=== PATIENT | female | born 1965 ===

== ENCOUNTER 2024-12-16 10:33 | Outpatient (AMB) | payer MEDICAID, SELFPAY ==
[2024-12-16 10:34] VITALS: BP 124/78; PULSE 78; O2SAT 99; BMI 39.9
--- NOTE | 2024-12-16 10:34 | A.OFFVIS_ITS ---
Vital Signs 12/16/24 10:34 Height 5 ft 4 in Weight 232 lb 9.403 oz BMI 39.9 BP 124/78 Blood Pressure Location Rt brachial Position Sitting Pulse 78 Pulse Source Doppler Pulse Oximetry (%) 99 Oxygen Delivery Method Room Air Intake Visit Reasons: sleep apnea Allergies ciprofloxacin [From Cipro] Allergy (Unknown, Verified 12/16/24 10:41) SWELLING levofloxacin [From Levaquin] Allergy (Unknown, Verified 12/16/24 10:41) SWELLING metronidazole [From Flagyl] Allergy (Unknown, Verified 12/16/24 10:41) HIVES From Flagyl Allergy (Unknown, Uncoded 06/10/20 17:08) HIVES HPI HPI sleep apnea: Details: 59-year-old lady, nonsmoker, with recent diagnosis of moderate obstructive sleep apnea on sleep study from [facility] referred for further follow- up. Patient is also complaining of lower extremity edema and dyspnea on exertion, together with right-sided chest/back pain. She denies family history of lung disease. She denies prior personal history of lung disease. Patient does not have exposure to industrial dusts. [facility] Social History (Updated 12/16/24 @ 10:42 by Uma Min [facility] Patient Tobacco Use Status: Never used Tobacco Review of Systems Const Reports daytime sleepiness, Denies excessive sweating, Reports fatigue, Denies fever(s), Denies lethargy, Reports malaise, Denies night sweats, Reports snoring and Denies weight loss Eyes Denies blurry vision and Denies itchy eyes ENT Denies nasal congestion, Denies post nasal drip, Denies sinus pain, Denies sinus pressure and Denies other ( Thrush) Card Denies chest pain, Reports pedal edema, Denies dyspnea, Reports dyspnea on exertion, Denies orthopnea and Denies paroxysmal nocturnal dyspnea Resp Denies cough, Denies hemoptysis, Denies excessive phlegm production, Denies dyspnea, Reports dyspnea on exertion, Reports snoring and Denies wheezing GI Denies abdominal pain and Denies heartburn Musc Denies myalgias, Denies arthralgias and Denies joint swelling Skin/Breast Denies rash Neuro Denies memory loss and Denies seizure-like activity Psych Denies abnormal sleep pattern, Denies anxiety and Denies memory loss Endo Denies excessive sweating, Reports fatigue and Denies heat intolerance Oziel/Lymph Denies easy bruising Aller/Immun Denies itchy eyes, Denies seasonal rhinorrhea and Denies wheezing Physical Exam Vital Signs: Last Vital Signs Pulse 78 12/16/24 10:34 BP 124/78 12/16/24 10:34 Pulse Ox 99 12/16/24 10:34 Oxygen Delivery Method Room Air 12/16/24 10:34 BMI result Body Mass Index 39.9 Const General: no acute distress and alert Nutritional Appearance: obese Orientation/consciousness: Other orientation findings ( oriented) HEENT Head: Yes atraumatic Eyes General: appearance normal, both eyes and all related structures Sclerae: sclerae normal EOM: EOMs intact bilaterally Neck Neck: Yes supple Lymphatic: no lymphadenopathy noted Resp Effort & Inspection: normal respiratory effort and no use of accessory muscles Auscultation: clear to auscultation bilaterally Cardio Rate: regular rate Rhythm: regular rhythm Heart sounds: no gallops, no murmurs and no rubs Skin General skin exam: other ( warm) Extrem General: No clubbing, No cyanosis and Yes edema (Trace bilateral) Assessment & Plan Assessment & Plan (1) LINA (obstructive sleep apnea): Code(s): G47.33 - Obstructive sleep apnea (adult) (pediatric) Category: Medical Plan: Results of sleep study reviewed, underlying moderate obstructive sleep apnea. Will start on APAP of 6-16 cm of water. (2) Dyspnea on exertion: Code(s): R06.09 - Other forms of dyspnea Category: Medical Plan: Unclear etiology, may be multifactorial, appears to have a component of extremity edema, will obtain 2D echocardiogram for further evaluation. (3) Right-sided chest wall pain: Code(s): R07.89 - Other chest pain Category: Medical Plan: Will obtain chest x-ray for further evaluation. Orders: Orders XR chest 2V Today R06.09 - Other forms of dyspnea, R07.89 - Other chest pain CA echo transthorac w con Today R06.09 - Other forms of dyspnea Coding Level of Care Code New Pt Level 4 (36606) Diagnoses LINA (obstructive sleep apnea) G47.33 Dyspnea on exertion R06.09 Right-sided chest wall pain R07.89
--- OUTSIDE RECORDS SUMMARY | 2024-12-16 12:40 | XMS_ITS | Clinical Summary ---
Author Organization [facility] Address [address] [place] [address] Care Team Providers Care Manager Pediatric Name Role Phone Unavailable Primary Care Provider Unavailabl e Social History Tobacco Use Types Packs/Day Years Used Date Smoking Tobacco: Never Assessed Comments Unknown Sex and Gender Information Value Date Recorded Sex Assigned at Not on file Legal Sex Female 6:11 PM EDT Gender Identity Not on file Sexual Orientation Not on file Plan of Treatment Health Maintenance Due Date Last Done Comments Breast Cancer Screening 1965 DTaP,Tdap,and Td Vaccines (1 - Tdap) 11/26/1983 Cervical Cancer Screening: P ap Smear 1985 Pneumococcal Vaccine: 50+ Ye ars (1 of 1 - PCV) 2014 Zoster Vaccines (1 of 2) 2014 COVID-19 Vaccine (2023-2 5 season) 2024 Influenza Vaccine (#1) 2024 Colorectal Cancer Screening: Colonoscopy 07/20/2024 Depression Screening 07/20/2024 HIV Screening 07/20/2024 Hepatitis C Screening 07/20/2024 Social Influencers of Health Screening 07/20/2024 RSV Immunization Patients 60 + Years Old (1 - 1-dose 75+ series) 11/26/2039 HIB Vaccines Aged Out No longer eligi ble based on patient's age to complete this topic HPV Vaccines Aged Out No longer eligi ble based on patient's age to complete this topic Hepatitis A Vaccines Aged Out No long er eligible based on patient's age to complete this topic Hepatitis B Vaccines Aged Out No long er eligible based on patient's age to complete this topic IPV Vaccines Aged Out No longer eligi ble based on patient's age to complete this topic MMR Vaccines Aged Out No longer eligi ble based on patient's age to complete this topic Meningococcal ACWY Vaccine Aged Out N o longer eligible based on patient's age to complete this topic Meningococcal B Vacine Aged Out No lo nger eligible based on patient's age to complete this topic Pneumococcal Vaccine: Pediat rics (0 to 5 Years) and At-Risk Patients (6 to 64 Years) Aged Out No longer eligible b ased on patient's age to complete this topic RSV Immunization Patients Un anatoliy 20 months Aged Out No longer eligible b ased on patient's age to complete this topic Varicella Vaccines Aged Out No longer eligible based on patient's age to complete this topic
== END 2024-12-16 11:00 | disposition home or self-care (01) ==
LOC: HO.HPS 10:33
PROVIDERS: PCP Internal Medicine; Visit Provider Internal Medicine Pulmonary Disease
DX: G47.33 Obstructive sleep apnea (adult) (pediatric) (principal); R06.09 Other forms of dyspnea; R07.89 Other chest pain
CPT/HCPCS: 99204

== ENCOUNTER 2024-12-16 10:33 | Outpatient (REF) | payer MEDICAID, SELFPAY ==
--- NOTE | ~2024-12-16 | XR_ITS ---
EXAMINATION: XR CHEST 2 VIEWS HISTORY: R07.89 - Other chest pain COMPARISON: There are no prior studies for comparison. FINDINGS: PA and lateral views of the chest are submitted. The lungs are expanded and clear. There is no pleural effusion, pneumothorax, or pulmonary vascular congestion. The heart is normal in size. There is a small hiatal hernia. There is degenerative disc disease of the spine. XR/XR chest 2V IMPRESSION: Small hiatal hernia. The lungs are clear. Electronically signed by: Humberto Medina MD 12/17/2024 07:22 AM EDT
== END 2024-12-16 10:34 | disposition home or self-care (01) ==
LOC: HO.XRAY 10:33
PROVIDERS: PCP Internal Medicine; Visit Provider Internal Medicine Pulmonary Disease
DX: R06.09 Other forms of dyspnea (principal); K44.9 Diaphragmatic hernia without obstruction or gangrene; R07.89 Other chest pain
CPT/HCPCS: 71046; 99202

== ENCOUNTER → 2024-12-16 11:09 | Outpatient (BNV) | payer MEDICAID, SELFPAY | PROVIDERS: PCP Internal Medicine; Visit Provider Radiology Diagnostic Radiology | DX: R07.89 Other chest pain (principal) | CPT/HCPCS: 71046 ==

== ENCOUNTER → 2025-01-13 08:58 | Outpatient (REF) | payer OTHER, SELFPAY ==
--- NOTE | 2025-01-13 09:01 | CA_ITS ---
Transthoracic Echocardiogram Patient (Last, First, Middle): Gisella Wise, Gender: Female Date of : 1965 Age: 59 Procedure Date: 01/13/2025 Procedure Type: Transthoracic Echocardiogram Location: OP Height: 162. cm Weight: 104.33 kg BSA: 2.07 m2 Heart Rate: bpm BP: 132 / 90 mmHg Stores Laborer: CRISTIANO Referring MD: Kyle Robins MD Symptoms: R06.09 - Other forms of dyspnea Study Quality: Adequate ECG Rhythm: Sinus Conclusions: - The left ventricular systolic function is normal. The calculated ejection fraction is 67% by biplane method - No obvious valvular pathology seen on this study. - The inferior vena cava is mildly dilated and collapses less than 50% with inspiration. Findings Left Ventricle Normal left ventricular cavity size. There is normal left ventricular wall thickness. The left ventricular systolic function is normal. The calculated ejection fraction is 67% by biplane method. There is no evidence of regional wall motion abnormalities. Diastolic function is normal for age. Right Ventricle Normal right ventricular cavity size and systolic function. Atria Both atria are normal in size. Aortic Valve There is a normal trileaflet aortic valve. There is no aortic valve stenosis. There is no aortic valve regurgitation. Mitral Valve The mitral valve appears normal. There is trace mitral valve regurgitation. There is no mitral valve stenosis. Pulmonic Valve The pulmonic valve is likely normal. Tricuspid Valve There is trace tricuspid valve regurgitation. There is no evidence of pulmonary hypertension. Great Vessels The asc aorta and aortic arch are normal in size. Venous The inferior vena cava is mildly dilated and collapses less than 50% with inspiration. Pericardium/Pleural There is no evidence of pericardial effusion. Prior Study Comparison No significant change compared to prior study dated: 04/28/2008. Recommendations, Care & Conclusions No obvious valvular pathology seen on this study. Measurements 2D Linear Measurements IVSd: 1.01 0.6-0.9/0.6-1.0 cm LVIDd: 3.95 3.9-5.3/4.2-5.9 cm LVIDd Index: 1.91 2.4-3.2/2.2-3.1 cm/m2 LVIDs: 2.84 2.0-3.6 cm LVPWd: 0.83 0.7-1.1 cm LA Diam: 3.80 2.7-3.8/3.0-4.0 cm LAIDs Index: 1.84 1.5-2.3 cm/m2 LV Mass: 137.56 67-162/88-224 g LV Mass Index: 66.46 43-95/49-115 g/m2 LVOT Diam: 2.00 3.0+(-)1.3 cm 2D Systolic Function EF 4C: 62.50 >55% EF 2C: 66.20 >55% EF BiP: 66.70 >55% Mitral Valve MV Pk E: 0.95 MV PK A: 0.89 MV Decel Time: 184.00 E/A: 1.10 E'Lateral: 11.50 E'Medial: 7.72 E/E' Med: 12.30 E/E' Lat: 8.20 PHT: 54.00 MVA PHT: 4.07 Decel [place]: 5.13 Aortic Valve AoV Pk Abel: 1.40 AoV Mn Abel: 0.98 AoV VTI: 0.30 AoV Pk Grad: 8.00 Aov Mn Grad: 4.00 APOLONIA Cont.VTI: 2.19 LVOT LVOT Pk Abel: 0.93 LVOT Mn Abel: 0.73 LVOT VTI: 0.21 LVOT Pk Grad: 3.00 LVOT Mn Grad: 2.00 LVOT Diam: 2.00 LVOT Area: 3.14 Diastolic Function MV Pk E: 0.95 MV Pk A: 0.89 E/A: 1.10 E'Medial: 7.72 E/E' Med: 12.30 E' Laterial: 11.50 E/E' Lat: 8.20 Right Ventricle TAPSE (mm): 19.50 TVS' Abel: 11.40 Tricuspid Valve TR Pk Abel: 1.40 TR Pk Grad: 8.00 RA Press: 15.00 RVSP: 23.00 Great Vessels Aorta Sinus of Valsalva: 2.90 2.0-3.5 cm Ao Asc: 2.90 2.1-3.4 cm Ao Arch: 2.20 Pulmonary Valve PV Pk Abel: 1.07 Peak PV Grad: 5.00 Updated in Other Vendor System with Status of Final Elvis Zarate MD electronically signed on 01/13/2025 11:28:51 AM with status of Final
--- OUTSIDE RECORDS SUMMARY | 2025-01-13 09:25 | XMS_ITS | Clinical Summary ---
Author Organization [facility] Address [address] [place] [address] Care Team Providers Care Golf Instructor Name Role Phone Unavailable Primary Care Provider [...] 2014 COVID-19 Vaccine (2023-2 5 season) 2024 Colorectal Cancer Screening: Colonoscopy 07/20/2024 Depression Screening 07/20/2024 HIV Screening 07/20/2024 Hepatitis C Screening 07/20/2024 Social Influencers of Health Screening 07/20/2024 Influenza Vaccine (Season Ended) 2025 RSV Immunization Adult Patie nts (1 - 1-dose 75+ series) 11/26/2039 HIB [...] age to complete this topic Meningococcal B Vaccine Aged Out No l onger eligible based on patient's age to complete [...]
== END ==
LOC: HO.CARD 08:58
PROVIDERS: PCP Internal Medicine; Visit Provider Internal Medicine Pulmonary Disease
DX: R06.09 Other forms of dyspnea (principal)
CPT/HCPCS: 93306

== ENCOUNTER → 2025-01-13 09:01 | Outpatient (BNV) | payer OTHER, SELFPAY | PROVIDERS: PCP Internal Medicine; Visit Provider Internal Medicine | DX: R06.02 Shortness of breath (principal) | CPT/HCPCS: 93306 ==

== ENCOUNTER 2025-02-05 14:12 | Outpatient (AMB) | payer OTHER, SELFPAY ==
--- NOTE | 2025-02-05 14:18 | MHC.OFFVIS ---
Vital Signs 02/05/25 14:37 Height 5 ft 4 in Weight 238 lb BMI 40.8 BP 154/100 H Blood Pressure Location Lt brachial Position Sitting Pulse 92 Pulse Source Pulse Oximeter Pulse Oximetry (%) 96 Oxygen Delivery Method Room Air Intake Visit Reasons: sleep apnea Allergies ciprofloxacin [From Cipro] Allergy (Unknown, Verified 02/05/25 14:43) SWELLING levofloxacin [From Levaquin] Allergy (Unknown, Verified 02/05/25 14:43) SWELLING metronidazole [From Flagyl] Allergy (Unknown, Verified 02/05/25 14:43) HIVES From Flagyl Allergy (Unknown, Uncoded 06/10/20 17:08) HIVES HPI HPI sleep apnea: Details: 60-year-old lady, nonsmoker, followed for LINA currently not able to use CPAP secondary to not permanent housing., reactive airway disease, now controlled on albuterol MDI, and significant orthopnea/lower extremity edema. Patient did have her 2D echocardiogram that showed underlying diastolic dysfunction. She denies recent exacerbations. [facility] Social History (Updated 12/16/24 @ 10:42 by Uma Min [facility]) Patient Tobacco Use Status: Never used Tobacco Review of Systems Const Denies daytime sleepiness, Denies excessive sweating, Denies fatigue, Denies fever(s), Denies lethargy, Denies malaise, Denies night sweats, Denies snoring and Denies weight loss Eyes Denies blurry vision and Denies itchy eyes ENT Denies nasal congestion, Denies post nasal drip, Denies sinus pain, Denies sinus pressure and Denies other ( Thrush) Card Denies chest pain, Reports pedal edema, Denies dyspnea, Reports dyspnea on exertion, Reports orthopnea and Denies paroxysmal nocturnal dyspnea Resp Denies cough, Denies hemoptysis, Denies excessive phlegm production, Denies dyspnea, Reports dyspnea on exertion, Denies snoring and Denies wheezing GI Denies abdominal pain and Denies heartburn Musc Denies myalgias, Denies arthralgias and Denies joint swelling Skin/Breast Denies rash Neuro Denies memory loss and Denies seizure-like activity Psych Denies abnormal sleep pattern, Denies anxiety and Denies memory loss Endo Denies excessive sweating, Denies fatigue and Denies heat intolerance Oziel/Lymph Denies easy bruising Aller/Immun Denies itchy eyes, Denies seasonal rhinorrhea and Denies wheezing Physical Exam Vital Signs: Last Vital Signs Pulse 92 02/05/25 14:37 BP 154/100 H 02/05/25 14:37 Pulse Ox 96 02/05/25 14:37 Oxygen Delivery Method Room Air 02/05/25 14:37 BMI result Body Mass Index 40.8 Const General: no acute distress and alert Nutritional Appearance: obese Orientation/consciousness: Other orientation findings ( oriented) HEENT Head: Yes atraumatic Eyes General: appearance normal, both eyes and all related structures Sclerae: sclerae normal EOM: EOMs intact bilaterally Neck Neck: Yes supple Lymphatic: no lymphadenopathy noted Resp Effort & Inspection: normal respiratory effort and no use of accessory muscles Auscultation: clear to auscultation bilaterally Cardio Rate: regular rate Rhythm: regular rhythm Heart sounds: no gallops, no murmurs and no rubs Skin General skin exam: other ( warm) Extrem General: No clubbing, No cyanosis and Yes edema (2+ bilateral) Assessment & Plan Assessment & Plan (1) Dyspnea on exertion: Code(s): R06.09 - Other forms of dyspnea Category: Medical Plan: Now with significant orthopnea/lower extremity edema with 2D echocardiogram showing diastolic dysfunction. Will start on furosemide 40 mg daily. (2) LINA (obstructive sleep apnea): Code(s): G47.33 - Obstructive sleep apnea (adult) (pediatric) Category: Medical Plan: Patient has received her CPAP machine, however she is not able to use his secondary to lack of permanent housing. Medications: New furosemide 40 mg PO QAM 30 tabs 6RF Coding Level of Care Code Est Pt Level 4 (75273) Diagnoses Dyspnea on exertion R06.09 LINA (obstructive sleep apnea) G47.33
[2025-02-05 14:37] VITALS: BP 154/100; PULSE 92; O2SAT 96; BMI 40.8
--- OUTSIDE RECORDS SUMMARY | 2025-02-05 14:52 | XMS_ITS | Clinical Summary ---
Author Organization [facility] Address [address] [place] [address] Care Team Providers Care Hot Saw Helper Name Role Phone Unavailable Primary Care Provider [...]
== END 2025-02-05 15:12 | disposition home or self-care (01) ==
LOC: HO.HPS 14:12
PROVIDERS: PCP Internal Medicine; Visit Provider Internal Medicine Pulmonary Disease
DX: R06.09 Other forms of dyspnea (principal); G47.33 Obstructive sleep apnea (adult) (pediatric)
CPT/HCPCS: 99214

== ENCOUNTER → 2025-02-05 14:12 | Outpatient (BNVA) | payer OTHER, SELFPAY | PROVIDERS: PCP Internal Medicine; Visit Provider Internal Medicine Pulmonary Disease | DX: R06.09 Other forms of dyspnea (principal); G47.33 Obstructive sleep apnea (adult) (pediatric) | CPT/HCPCS: 99212 ==

== ENCOUNTER 2025-05-22 08:39 | Outpatient (AMB) | payer OTHER, SELFPAY ==
[2025-05-22 09:01] VITALS: BP 119/62; PULSE 79; O2SAT 99; BMI 41.0
--- NOTE | 2025-05-22 09:01 | A.OFFVIS_ITS ---
Vital Signs 05/22/25 09:01 Height 5 ft 4 in Weight 239 lb BMI 41.0 BP 119/62 Blood Pressure Location Lt brachial Position Sitting Pulse 79 Pulse Source Pulse Oximeter Pulse Oximetry (%) 99 Oxygen Delivery Method Room Air Intake Visit Reasons: sleep apnea Trigonometry Teacher Required: Yes Trigonometry Teacher Name: Uma Piotr Gomez Allergies ciprofloxacin (From Cipro) Allergy (Unknown, Verified 05/22/25 09:06) SWELLING levofloxacin (From Levaquin) Allergy (Unknown, Verified 05/22/25 09:06) SWELLING metronidazole (From Flagyl) Allergy (Unknown, Verified 05/22/25 09:06) HIVES From Flagyl Allergy (Unknown, Uncoded 06/10/20 17:08) HIVES HPI HPI sleep apnea: Details: 59-year-old lady, nonsmoker, followed for moderate LINA and reactive airway disease. Patient was tried on and not able to use CPAP. Her reactive airway disease component as well controlled on as needed albuterol MDI. She had recent admission to [facility] for pulmonary segmental emboli in the right lower lobe and she is currently on apixaban. She continues to complain of dyspnea on exertion and orthopnea despite being compliant with her current regimen of Lasix 40 mg daily. She is complaining old left posterior back/chest pain that is similar to pain that she had with her pulmonary emboli. [facility] Social History (Updated 12/16/24 @ 10:42 by RYAN Abdul) Patient Tobacco Use Status: Never used Tobacco Review of Systems Const Denies daytime sleepiness, Denies excessive sweating, Denies fatigue, Denies fever(s), Denies lethargy, Denies malaise, Denies night sweats, Denies snoring and Denies weight loss Eyes Denies blurry vision and Denies itchy eyes ENT Denies nasal congestion, Denies post nasal drip, Denies sinus pain, Denies sinus pressure and Denies other ( Thrush) Card Denies chest pain, Reports pedal edema, Denies dyspnea, Reports dyspnea on exertion, Reports orthopnea and Denies paroxysmal nocturnal dyspnea Resp Denies cough, Denies hemoptysis, Denies excessive phlegm production, Denies dyspnea, Reports dyspnea on exertion, Denies snoring and Denies wheezing GI Denies abdominal pain and Denies heartburn Musc Denies myalgias, Denies arthralgias and Denies joint swelling Skin/Breast Denies rash Neuro Denies memory loss and Denies seizure-like activity Psych Denies abnormal sleep pattern, Denies anxiety and Denies memory loss Endo Denies excessive sweating, Denies fatigue and Denies heat intolerance Oziel/Lymph Denies easy bruising Aller/Immun Denies itchy eyes, Denies seasonal rhinorrhea and Denies wheezing Physical Exam Vital Signs: Last Vital Signs Pulse 79 05/22/25 09:01 BP 119/62 05/22/25 09:01 Pulse Ox 99 05/22/25 09:01 Oxygen Delivery Method Room Air 05/22/25 09:01 BMI result Body Mass Index 41.0 Const General: no acute distress and alert Nutritional Appearance: obese Orientation/consciousness: Other orientation findings ( oriented) HEENT Head: Yes atraumatic Eyes General: appearance normal, both eyes and all related structures Sclerae: sclerae normal EOM: EOMs intact bilaterally Neck Neck: Yes supple Lymphatic: no lymphadenopathy noted Resp Effort & Inspection: normal respiratory effort and no use of accessory muscles Auscultation: clear to auscultation bilaterally Cardio Rate: regular rate Rhythm: regular rhythm Heart sounds: no gallops, no murmurs and no rubs Skin General skin exam: other ( warm) Extrem General: No clubbing, No cyanosis and Yes edema (Trace bilateral) Assessment & Plan Assessment & Plan (1) LINA (obstructive sleep apnea): Code(s): G47.33 - Obstructive sleep apnea (adult) (pediatric) Category: Medical Plan: Underlying moderate obstructive sleep apnea intolerant of CPAP. Discussed utilization of jaw advancement device. (2) Dyspnea on exertion: Code(s): R06.09 - Other forms of dyspnea Category: Medical Plan: Dyspnea and orthopnea appears to have cardiac component. Will refer to Cardiology. (3) Pulmonary emboli: Code(s): I26.99 - Other pulmonary embolism without acute cor pulmonale Category: Medical Plan: Segmental and subsegmental right lower lobe, continue on apixaban. Now with concern for suboptimal control and possible another embolism. Will repeat CT angio chest. (4) Reactive airway disease: Code(s): J45.909 - Unspecified asthma, uncomplicated Category: Medical Plan: Well controlled on albuterol MDI as needed. Continue current regimen. Coding Level of Care Code Est Pt Level 4 (12056) Complex EM visit Add On G2211 Diagnoses LINA (obstructive sleep apnea) G47.33 Dyspnea on exertion R06.09 Pulmonary emboli I26.99 Reactive airway disease J45.909
--- OUTSIDE RECORDS SUMMARY | 2025-05-22 09:35 | XMS_ITS | Clinical Summary ---
Author Organization [facility] Address [address] [place] [address] Care Team Providers Care Fisheries Enforcement Officer Name Role Phone Physician, Pcp Unknown Primary Care Provider Princess vailable Allergies Active Allergy Reactions Criticality Noted Date Comments Ciprofloxacin Angioedema High 03/05/2025 Metronidazole Hives 03/05/2025 Medications traZODone (DESYREL) 100 mg tablet Take 2 tablets (200 mg total) by mouth at bedtime. TAKE 2 TABLETS BY MOUTH EVERY DAY AT NIGHT 5 Active omeprazole (PriLOSEC) [address] capsule Take 1 capsule (40 mg total) by mouth 1 (one) time each day. 5 Active ARIPiprazole (ABILIFY) 5 mg tablet Take 1 tablet (5 mg total) by mouth 1 (one) time each day. 5 Active busPIRone (BUSPAR) 15 mg tablet Take 1 tablet (15 mg total) by mouth 3 (three) times a day if needed. 5 Active cholecalciferol (VITAMIN D-3) 1,250 mcg (50,000 unit) capsule Take 1 capsule (50,000 Units total) by mouth 1 (one) time per week. 5 Active citalopram (CeleXA) 10 mg tablet Take 1 tablet (10 mg total) by mouth 1 (one) time each day. 5 Active Auvelity 45-105 mg tablet, IR and ER, biphasic Take 1 tablet by mouth 2 (two) times a day. 5 Active furosemide (LASIX) 40 mg tablet Take 1 tablet (40 mg total) by mouth 1 (one) time each day in the morning. 5 Active hydrOXYzine pamoate (VISTARIL) 50 mg capsule Take 1 capsule (50 mg total) by mouth at bedtime. at bedtime 5 Active lidocaine (LIDODERM) 5 % patch Apply 1 patch topically 1 (one) time each day. 5 Active Daily-Marily, with folic acid, 400 mcg tablet Take 1 tablet by mouth 1 (one) time each day. 5 Active clonazePAM (KlonoPIN) 0.5 mg tablet Take 1 tablet (0.5 mg total) by mouth 2 (two) times a day. Max Daily Amount: 1 mg Active cyanocobalamin (VITAMIN B-12) 1,000 mcg/mL injection 1000 mcg IM daily x 4 days, then once weekly x 4 8 mL 5 Active Active Problems Problem Noted Date Diagnosed Date Left facial numbness 03/06/2025 Transient neurological symptoms 03/05/2025 Depression 03/05/2025 Fibromyalgia 03/05/2025 Iron deficiency anemia 03/05/2025 Insomnia 03/05/2025 Conversion disorder 12/05/2005 Vitamin B12 deficiency 12/05/2005 Encounters Date Type Department Care Team Description 03/05/2025 11:25 AM EDT - 03/06/2025 4:58 PM EDT Hospital Encounter [facility] [address] [place] [id number] Shira Wheeler DO Flores, Carlos M, MD Kela, Kashyap Devendrabhai, MD Left facial numbness (Primary Dx); Weakness of extremity; Vitamin B12 deficiency Discharge Disposition: Home-Health Care [facility] [place] from Last 3 Months Surgical History Surgery Date Site/Laterality Comments GASTRIC BYPASS Medical History Medical History Date Comments Fibromyalgia Social History Tobacco Use Types Packs/Day Years Used Date Smoking Tobacco: Never Smokeless Tobacco: Current Tobacco Cessation:Ready to Q uit: Not Asked; Counseling Given: Not Answered Alcohol Use Standard Drinks/Week Comments Never 0 (1 standard drink = 0.6 oz pur e alcohol) Interpersonal Safety Answer Date Record ed Physical Abuse 03/06/2025 Verbal Abuse 03/06/2025 Comments Unknown Sex and Gender Information Value Date Recorded Sex Assigned at Not on file Legal Sex Female 6:11 PM EDT Gender Identity Not on file Sexual Orientation Not on file Obstetrics History Last Filed Vital Signs Vital Sign Reading Time Taken Comments Blood Pressure 128/77 03/06/2025 7:44 AM EDT Pulse 74 03/06/2025 7:44 AM EDT Temperature 36.4 C (97.5 F) 03/06/2025 7:44 AM EDT Respiratory Rate 12 03/06/2025 7:44 AM EDT Oxygen Saturation 98% 03/06/2025 7:44 AM EDT Inhaled Oxygen Concentration - - Weight 110 kg (242 lb) 03/05/2025 9:31 PM EDT Height 162.6 cm (5' 4 ) 03/05/2025 11:20 AM EDT Body Mass Index 41.54 03/05/2025 11:20 AM EDT Plan of Treatment Health Maintenance Due Date Last Done Comments Breast Cancer Screening 1965 Cervical Cancer Screening: Pap Smear 1985 Pneumococcal Vaccine: 50+ Years (1 of 1 - PCV) 2014 COVID-19 Vaccine ( - season) 2024 Cholesterol Screening (Lipid Panel) 07/20/2024 Colorectal Cancer Screening: Colonoscopy 07/20/2024 HIV Screening 07/20/2024 Hepatitis C Screening 07/20/2024 Social Influencers of Health Screening 07/20/2024 Depression Screening 09/24/2024 RSV Immunization Adult Patients (1 - Risk 60-74 years 1-dose series) 2024 Influenza Vaccine (#1) 2025 , 08/02/2010, 06/15/2009, Additional history exists DTaP,Tdap,and Td Vaccines (3 - Td or Tdap) 06/11/2033 06/11/2023, 04/08/2003 Zoster Vaccines Completed 07/09/2024, 06/11/2023 HIB Vaccines Aged Out No longer eligi [...] to complete this topic RSV Immunization Patients Under 20 months Aged Out No longer eligible based on patient's age to complete this topic Varicella Vaccines Aged Out No longer eligible based on patient's age to complete this topic Procedures Procedure Name Priority Date/Time Associated Diagnosis Comments METHYLMALONIC ACID, SERUM Routine 03/06/2025 8:26 AM EDT PATHOLOGIST REVIEW BLOOD SMEAR Routine 03/06/2025 6:29 AM EDT CBC WITH AUTO DIFFERENTIAL Routine 03/06/2025 6:29 AM EDT CBC AND DIFFERENTIAL Routine 03/06/2025 6:29 AM EDT MAGNESIUM Routine 03/06/2025 6:29 AM EDT BASIC METABOLIC PANEL Routine 03/06/2025 6:29 AM EDT ECG ANNOTATED 03/06/2025 LT BLUE - NA CITRATE Routine 03/05/2025 7:37 PM EDT EXTRA TUBES Routine 03/05/2025 7:37 PM EDT VITAMIN B12 AND FOLATE Routine 7:37 PM EDT CPAP NIV Routine 03/05/2025 6:47 PM EDT ECG 12-LEAD STAT 03/05/2025 2:13 PM EDT XR CHEST 1 VIEW STAT 03/05/2025 1:57 PM EDT MR BRAIN WO CONTRAST STAT 03/05/2025 1:36 PM EDT CBC WITH AUTO DIFFERENTIAL STAT 03/05/2025 12:39 PM EDT ACTIVATED PARTIAL THROMBOPLASTIN TIME STAT 03/05/2025 12:39 PM EDT PROTHROMBIN TIME WITH INR STAT 03/05/2025 12:39 PM EDT BASIC METABOLIC PANEL STAT 03/05/2025 12:39 PM EDT CBC AND DIFFERENTIAL STAT 03/05/2025 12:[address] ANGIO HEAD/NECK STROKE WO AND/OR W CONTRAST STAT 03/05/2025 12:[address] HEAD STROKE WO CONTRAST STAT 03/05/2025 11:43 AM EDT from Last 3 Months Results * Methylmalonic acid, serum (03/06/2025 8:26 AM EDT) Methylmalonic Acid 0.16 <0.40 umol/L 03/10/2025 4:09 AM EDT [facility] Comment: If applicable, any drug confirmation testing reported here was developed and the performance characteristics determined by [facility]. This confirmation testing has not been cleared or approved by the FDA. The laboratory is regulated under CLIA as qualified to perform high-complexity testing. This test is used for patient testing purposes. It should not be regarded as investigational or for research. Test performed at [facility], [address], [place] [address] Ingrid Vega MD, PhD - Quality Assurance Inspector Blood Venous blood specimen / Unknown Venipuncture / Unknown 03/06/2025 8:26 AM EDT 03/06/2025 9:00 AM EDT Alma MTZ LAB BLOOD ORDERABLES Final Result Performing Organization Address City/[facility]/ZIP Co de Phone [place] [address] [place] [address] * Pathology review, blood smear (03/06/2025 6:29 AM EDT) Pathologist Review Blood Smear Leukopenia including absolute neutropenia and lymphopenia; smear not diagnostic of etiology. (See note.) Note: Clinical correlation and follow-up is recommended, including follow-up CBC to evaluate for persistence/pr ogression, as clinically indicated. 03/06/2025 8:52 AM EDT [facility] Blood Venous blood specimen / Unknown Venipuncture / Unknown 03/06/2025 6:29 AM EDT 03/06/2025 7:31 AM EDT Ken Treviño MD LAB BLOOD ORDERABLES Final Re sult Performing Organization Address [facility]/ZIP Co de Phone Number [facility] [address] [place] [address], [place] [phone] * (ABNORMAL) CBC auto differential (03/06/2025 6:29 AM EDT) Only the most recent of2 resultswithin the time period is included. WBC 1.9(LL) 4.8 - 10.8 K/mcL LAB HEMETOLOGY METHOD 03/06/2025 8:35 AM EDT [facility] RBC 4.10 3.80 - 4.80 M/mcL LAB HEMETOLOGY METHOD 03/06/2025 8:35 AM EDT [facility] Hemoglobin 12.2 11.5 - 16.0 g/dL LAB HEMETOLOGY METHOD 03/06/2025 8:35 AM EDT [facility] Hematocrit 39.1 35.0 - 47.0 % LAB HEMETOLOGY METHOD 03/06/2025 8:35 AM [facility] MCV 94.9 79.0 - 98.0 FL LAB HEMETOLOGY METHOD 03/06/2025 8:35 AM [facility] MCH 29.6 27.0 - 32.0 pcg LAB HEMETOLOGY METHOD 03/06/2025 8:35 AM [facility] MCHC 31.2(L) 32.0 - 37.0 g/dL LAB HEMETOLOGY METHOD 03/06/2025 8:35 AM [facility] RDW 13.0 11.0 - 15.0 % LAB HEMETOLOGY METHOD 03/06/2025 8:35 AM [facility] Platelets 162 130 - 400 K/mcL LAB HEMETOLOGY METHOD 03/06/2025 8:35 AM [facility] MPV 11.9(H) 7.0 - 11.0 FL LAB HEMETOLOGY METHOD 03/06/2025 8:35 AM [facility] NRBC 0.0 <1.0 % LAB HEMETOLOGY METHOD 03/06/2025 8:35 AM [facility] NRBC Absolute 0.00 <0.10 K/mcL LAB HEMETOLOGY METHOD 03/06/2025 8:35 AM [facility] Neutrophils Relative 40.7 % LAB HEMETOLOGY METHOD 03/06/2025 8:35 AM [facility] Comment:This is an appended report. These results have been appended to a previously preliminary verified report. Lymphocytes Relative 35.9 % LAB HEMETOLOGY METHOD 03/06/2025 8:35 AM [facility] Comment:This is an appended report. These results have been appended to a previously preliminary verified report. Monocytes Relative 17.7 % LAB HEMETOLOGY METHOD 03/06/2025 8:35 AM [facility] Comment:This is an appended report. These results have been appended to a previously preliminary verified report. Eosinophils Relative 4.2 % LAB HEMETOLOGY METHOD 03/06/2025 8:35 AM [facility] Comment:This is an appended report. These results have been appended to a previously preliminary verified report. Basophils Relative 1.0 % LAB HEMETOLOGY METHOD 03/06/2025 8:35 AM [facility] Comment:This is an appended report. These results have been appended to a previously preliminary verified report. Immature Granulocytes Relative 0.5 % LAB HEMETOLOGY METHOD 03/06/2025 8:35 AM [facility] Comment:This is an appended report. These results have been appended to a previously preliminary verified report. Neutrophils Absolute 0.78(L) 1.50 - 7.00 K/mcL [facility] 03/06/2025 8:35 AM [facility] Comment:This is an appended report. These results have been appended to a previously preliminary verified report. Lymphocytes Absolute 0.69(L) 1.00 - 5.00 K/mcL [facility] 03/06/2025 8:35 AM [facility] Comment:This is an appended report. These results have been appended to a previously preliminary verified report. Monocytes Absolute 0.34 0.20 - 1.00 K/mcL LAB HEMETOLOGY METHOD 03/06/2025 8:35 AM [facility] Comment:This is an appended report. These results have been appended to a previously preliminary verified report. Eosinophils Absolute 0.08 0.00 - 0.50 K/mcL LAB HEMETOLOGY METHOD 03/06/2025 8:35 AM [facility] Comment:This is an appended report. These results have been appended to a previously preliminary verified report. Basophils Absolute 0.02 0.00 - 0.20 K/mcL LAB HEMETOLOGY METHOD 03/06/2025 8:35 AM [facility] Comment:This is an appended report. These results have been appended to a previously preliminary verified report. Immature Granulocytes Absolute 0.01 0.00 - 0.03 K/mcL LAB HEMETOLOGY METHOD 03/06/2025 8:35 AM EDT [facility] Comment:This is an appended report. These results have been appended to a previously preliminary verified report. Blood Venous blood specimen / Unknown Venipuncture / Unknown 03/06/2025 6:29 AM EDT 03/06/2025 7:31 AM EDT us Ken Treviño MD LAB BLOOD ORDERABLES Final Re sult Performing Organization Address City/[facility]/ZIP Co de Phone Number [facility] [address] [place] [address], [place] [phone] * Magnesium (03/06/2025 6:29 AM EDT) Magnesium 2.3 1.9 - 2.6 mg/dL LAB CHEMISTRY METHOD 03/06/2025 8:30 AM EDT [facility] Blood Venous blood specimen / Unknown Venipuncture / Unknown 03/06/2025 6:29 AM EDT 03/06/2025 7:30 AM EDT us Ken Treviño MD LAB BLOOD ORDERABLES Final Re sult Performing Organization Address City/[facility]/ZIP Co de Phone Number [facility] [address] [place] [address], [place] [phone] * Basic metabolic panel (03/06/2025 6:29 AM EDT) Only the most recent of2 resultswithin the time period is included. Sodium 138 133 - 145 mmol/L LAB CHEMISTRY METHOD 03/06/2025 8:30 AM EDT [facility] Potassium 4.1 3.5 - 5.5 mmol/L LAB CHEMISTRY METHOD 03/06/2025 8:30 AM EDT [facility] Chloride 107 96 - 110 mmol/L LAB CHEMISTRY METHOD 03/06/2025 8:30 AM [facility] CO2 27 21 - 32 mmol/L LAB CHEMISTRY METHOD 03/06/2025 8:30 AM [facility] Anion Gap 4 3 - 11 LAB CHEMISTRY METHOD 03/06/2025 8:30 AM [facility] Glucose 85 70 - 100 mg/dL LAB CHEMISTRY METHOD 03/06/2025 8:30 AM [facility] BUN 6 5 - 25 mg/dL LAB CHEMISTRY METHOD 03/06/2025 8:30 AM [facility] Creatinine 0.55 0.50 - 1.10 mg/dL LAB CHEMISTRY METHOD 03/06/2025 8:30 AM [facility] eGFR 105 >=60 mL/min/1. 73m2 LAB CHEMISTRY METHOD 03/06/2025 8:30 AM [facility] Comment:Calculation based on the Chronic Kidney Disease Epidemiology Collaboration (CKD-EPI) equation refit without adjustment for race. BUN/Creatinine Ratio 10.9 LAB CHEMISTRY METHOD 03/06/2025 8:30 AM [facility] Calcium 8.6 8.5 - 10.5 mg/dL LAB CHEMISTRY METHOD 03/06/2025 8:30 AM [facility] Blood Venous blood specimen / Unknown Venipuncture / Unknown 03/06/2025 6:29 AM EDT 03/06/2025 7:30 AM EDT Ken Treviño MD LAB BLOOD ORDERABLES Final Re sult [facility] [address] [place] [address], * ECG-Annotated (03/06/2025) us Provider Onbase ECG ORDERABLES Final Result * (ABNORMAL) Vitamin B12 and folate (03/05/2025 7:37 PM EDT) Pathologist [facility] Vitamin B-12 219(L) 250 - 900 pcg/mL LAB CHEMISTRY METHOD 03/05/2025 9:12 PM EDT [facility] Folate 5.0 2.8 - 17.0 ng/ml LAB CHEMISTRY METHOD 03/05/2025 9:12 PM EDT [facility] Blood Venous blood specimen / Unknown Venipuncture / Unknown 03/05/2025 7:37 PM EDT 03/05/2025 8:20 PM EDT Digna [facility] LAB BLOOD ORDERABLES Final Re sult Performing Organization Address [facility]/ZIP Co de Phone Number [facility] [address] [place] [address], [place] [phone] * Light blue tube (03/05/2025 7:37 PM EDT) [facility] Extra Tube Hold for add-ons. 03/05/2025 10:02 PM EDT [facility] Comment:Auto resulted. Blood Venous blood specimen / Unknown 03/05/2025 7:37 PM EDT 03/05/2025 8:22 PM EDT Shira Wheeler DO LAB BLOOD ORDERABLES Princess l Result Performing Organization Address City/[facility]/ZIP Co de Phone Number [facility] [address] [place] [address], [place] [phone] * ECG 12 lead (03/05/2025 2:13 PM EDT) [facility] Ventricular Rate ECG 77 BPM GEMUSE Atrial Rate 77 BPM GEMUSE P-R Interval 134 ms GEMUSE QRS Duration 84 ms GEMUSE Q-T Interval 368 ms GEMUSE QTc 416 ms GEMUSE P Wave [place] 33 degrees GEMUSE R [place] 4 degrees GEMUSE T [place] 23 degrees GEMUSE ECG Interpretation Normal sinus rhythm with sinus arrhythmia Normal ECG When compared with ECG of 30-JUN-2024 09:15, No significant change was found Confirmed by Mesfin SANTIZO YUFENG ([id number]) on 03/05/2025 8:00:21 PM GEMUSE 03/05/2025 2:13 PM EDT 03/05/2025 8:00 PM EDT us Peter Alfaro DO ECG ORDERABLES Final Resul t GEMUSE * XR Chest 1 View (03/05/2025 1:57 PM EDT) Anatomical Region Laterality Modality Body Radiographic Shira ging 03/05/2025 2:46 PM EDT Impressions 03/05/2025 2:52 PM EDT FINDINGS/IMPRESSION: No pneumonia or pulmonary edema. No pleural effusion or pneumothorax. Cardiac silhouette is normal in size. Degenerative changes seen throughout the bones. Levoconvex thoracolumbar scoliosis. Cholecystectomy clips. -------- FINAL REPORT -------- Dictated By: REMY GREENWOOD Dictated Date: 03/05/2025 14:46 ET Assigned Physician: REMY GREENWOOD Reviewed and Electronically Signed By: REMY GREENWOOD Signed Date: 03/05/2025 14:52 ET Workstation ID: [id number] Transcribed By: Self Edit Transcribed Date: 03/05/2025 14:46 ET Narrative 03/05/2025 2:52 PM EDT XR CHEST 1 VIEW INDICATION: Shortness of breath TECHNIQUE: XR CHEST 1 VIEW COMPARISON: No priors available. Procedure Note Remy Greenwood MD - 03/05/2025 XR CHEST 1 VIEW INDICATION: Shortness of breath TECHNIQUE: XR CHEST 1 VIEW COMPARISON: No priors available. IMPRESSION: FINDINGS/IMPRESSION: No pneumonia or pulmonary edema. No pleural effusionor pneumothorax. Cardiac silhouette is normal in size. Degenerativechanges seen throughout the bones. Levoconvex thoracolumbar scoliosis.Cholecystectomy clips. -------- FINAL REPORT -------- Dictated By: REMY GREENWOOD Dictated Date: 03/05/2025 14:46 ET Assigned Physician: REMY GREENWOOD Reviewed and Electronically Signed By: REMY GREENWOOD Signed Date: 03/05/2025 14:52 ET Workstation ID: [id number] Transcribed By: Self Edit Transcribed Date: 03/05/2025 14:46 ET us Peter Alfaro DO IMG XR PROCEDURES Final Res ult * MR Brain wo Contrast (03/05/2025 1:36 PM EDT) Anatomical Region Laterality Modality Head and Neck Magnetic Resonan ce 03/05/2025 1:45 PM EDT Impressions 03/05/2025 1:50 PM EDT 1. No acute intracranial findings. 2. Scattered foci of T2 prolongation in the supratentorial white matter. These are nonspecific and could be postinflammatory/postinfectious, secondary to migrainous or other vasculopathy, or, in the appropriate clinical setting, secondary to demyelinating disease. They are most commonly secondary to chronic microvascular ischemic disease. -------- FINAL REPORT -------- Dictated By: Lalo Mott Dictated Date: 03/05/2025 13:45 ET Assigned Physician: Lalo Mott Reviewed and Electronically Signed By: Lalo Mott Signed Date: 03/05/2025 13:50 ET Workstation ID: [id number] Transcribed By: Self Edit Transcribed Date: 03/05/2025 13:45 ET Narrative 03/05/2025 1:50 PM EDT PROCEDURE: Noncontrast MRI of the brain. HISTORY: Neuro deficit, acute, stroke suspected. COMPARISON: Head CT and CT angiogram obtained the same day. TECHNIQUE: Multiplanar multisequence MRI of the brain without intravenous contrast administration. FINDINGS: BRAIN: No diffusion abnormality. No mass or extra-axial fluid collection. No hydrocephalus. The major intracranial flow voids are preserved. Age commensurate ventricles and sulci. Scattered foci of T2 prolongation in the supratentorial white matter are nonspecific but likely sequela of mild chronic microvascular ischemic disease. ORBITS: Normal. SINUSES/MASTOIDS: Mild mucosal thickening in the right ethmoid air cells. Small mucous retention cyst in the right maxillary antrum. Small amount of fluid in the posterior left mastoid air cells. CALVARIUM: Normal. OTHER: The visualized skull base soft tissues are normal. Partially visible mild degenerative changes of the cervical spine. Mild degenerative changes of the temporomandibular joints. Procedure Note Lalo Mott MD - 03/05/2025 PROCEDURE: Noncontrast MRI of the brain. HISTORY: Neuro deficit, acute, stroke suspected. COMPARISON: Head CT and CT angiogram obtained the same day. TECHNIQUE: Multiplanar multisequence MRI of the brain without intravenouscontrast administration. FINDINGS: BRAIN: No diffusion abnormality. No mass or extra-axial fluid collection.No hydrocephalus. The major intracranial flow voids are preserved. Agecommensurate ventricles and sulci. Scattered foci of T2 prolongation inthe supratentorial white matter are nonspecific but likely sequela of mildchronic microvascular ischemic disease. ORBITS: Normal. SINUSES/MASTOIDS: Mild mucosal thickening in the right ethmoid air cells.Small mucous retention cyst in the right maxillary antrum. Small amountof fluid in the posterior left mastoid air cells. CALVARIUM: Normal. OTHER: The visualized skull base soft tissues are normal. Partiallyvisible mild degenerative changes of the cervical spine. Milddegenerative changes of the temporomandibular joints. IMPRESSION: 1. No acute intracranial findings. 2. Scattered foci of T2 prolongation in the supratentorial white matter.These are nonspecific and could be postinflammatory/postinfectious,secondary to migrainous or other vasculopathy, or, in the appropriateclinical setting, secondary to demyelinating disease. They are mostcommonly secondary to chronic microvascular ischemic disease. -------- FINAL REPORT -------- Dictated By: Lalo Mott Dictated Date: 03/05/2025 13:45 ET Assigned Physician: Lalo Mott Reviewed and Electronically Signed By: Lalo Mott Signed Date: 03/05/2025 13:50 ET Workstation ID: [id number] Transcribed By: Self Edit Transcribed Date: 03/05/2025 13:45 ET Shira Solis Smith Liam DO IMG MRI PROCEDURES Final Result * Activated partial thromboplastin time (03/05/2025 12:39 PM EDT) aPTT 26.9 24.1 - 39.3 sec LAB COAGULATION METHOD 03/05/2025 1:21 PM EDT [facility] Blood Venous blood specimen / Unknown Venipuncture / Unknown 03/05/2025 12:39 PM EDT 03/05/2025 1:06 PM EDT us Peter Alfaro DO LAB BLOOD ORDERABLES Final Result Performing Organization Address [facility]/ZIP Co de Phone Number [facility] [address] [place] [address], [place] [phone] * Prothrombin time with INR (03/05/2025 12:39 PM EDT) Protime 11.2 10.6 - 13.9 sec LAB COAGULATION METHOD 03/05/2025 1:21 PM EDT [facility] INR 0.9 LAB COAGULATION METHOD 03/05/2025 1:21 PM EDT [facility] Blood Venous blood specimen / Unknown Venipuncture / Unknown 03/05/2025 12:39 PM EDT 03/05/2025 1:06 PM EDT us Peter Alfaro DO LAB BLOOD ORDERABLES Final Result Performing Organization Address City/[facility]/ZIP Co de Phone Number [facility] [address] [place] [address], [place] [phone] * CT Angio Head/Neck Stroke wo and/or w Contrast (03/05/2025 12:06 PM EDT) Anatomical Region Laterality Modality Head and Neck Computed Tomogra phy 03/05/2025 12:3 3 PM EDT Impressions 03/05/2025 12:42 PM EDT Normal CTA of the brain and neck for the patient's age. No evidence of aneurysm, thrombosis or occlusion. -------- FINAL REPORT -------- Dictated By: Dariel Arreguin Dictated Date: 03/05/2025 12:33 ET Assigned Physician: Dariel Arreguin Reviewed and Electronically Signed By: Dariel Arreguin Signed Date: 03/05/2025 12:42 ET Workstation ID: [id number] Transcribed By: Self Edit Transcribed Date: 03/05/2025 12:33 ET Narrative 03/05/2025 12:42 PM EDT INDICATION: Left arm weakness TECHNIQUE: CTA of the brain and neck performed with a total of 90 cc [id number] administered intravenously without incident. Arterial phase imaging of the brain and neck and delayed phase imaging of the brain obtained. Axial, coronal and sagittal imaging reviewed including MIPS. 3D multiplanar reconstructions performed on a computer workstation. CT source data was analyzed using [employer] artificial intelligence software to assist stroke clinical decision making with regard to diagnosis of large vessel occlusion. Scanner: Dexetraer 128slice VCT Dose reduction technique: ASIR (Adaptive statistical iterative reconstruction) and/or AEC (automated exposure control) Dose: total exam DLP 2681 mGY per cm COMPARISON: No prior studies are available for comparison. FINDINGS: Arterial phase: Aortic arch: Within normal limits. Right carotid: Within normal limits. Left carotid: Within normal limits. Subclavian/vertebral: Within normal limits. Intracranial vessels: Vertebral arteries join to form the basilar artery which is normal in course and caliber and terminates into posterior cerebral arteries bilaterally. Nonvisualized posterior mid kidney arteries. Widely patent bilateral intracranial ICAs. Patent bilateral middle cerebral arteries. Patent bilateral anterior cerebral arteries as well as anterior communicating artery. Delayed phase: Widely patent dural sinuses. CT neck: No cervical lymphadenopathy. Parotid, submandibular and thyroid glands are within normal limits. No parapharyngeal or retropharyngeal soft tissue swelling. CT brain: No abnormal enhancing brain lesions. Paranasal sinuses are clear. Bony structures: Within normal limits for the patient's age. Procedure Note Dariel Arreguin MD - 03/05/2025 INDICATION: Left arm weakness TECHNIQUE: CTA of the brain and neck performed with a total of 90 [id number] administered intravenously without incident. Arterial phaseimaging of the brain and neck and delayed phase imaging of the brainobtained. Axial, coronal and sagittal imaging reviewed including MIPS. 3Dmultiplanar reconstructions performed on a computer workstation. CT source data was analyzed using Atmail artificial intelligencesoftware to assist stroke clinical decision making with regard todiagnosis of large vessel occlusion. Scanner: Dexetraer 128slice VCT Dose reduction technique: ASIR (Adaptive statistical iterativereconstruction) and/or AEC (automated exposure control) Dose: total exam DLP 2681 mGY per cm COMPARISON: No prior studies are available for comparison. FINDINGS: Arterial phase: Aortic arch: Within normal limits. Right carotid: Within normal limits. Left carotid: Within normal limits. Subclavian/vertebral: Within normal limits. Intracranial vessels: Vertebral arteries join to form the basilar arterywhich is normal in course and caliber and terminates into posteriorcerebral arteries bilaterally. Nonvisualized posterior mid kidneyarteries. Widely patent bilateral intracranial ICAs. Patent bilateral middlecerebral arteries. Patent bilateral anterior cerebral arteries as well asanterior communicating artery. Delayed phase: Widely patent dural sinuses. CT neck: No cervical lymphadenopathy. Parotid, submandibular and thyroidglands are within normal limits. No parapharyngeal or retropharyngeal softtissue swelling. CT brain: No abnormal enhancing brain lesions. Paranasal sinuses areclear. Bony structures: Within normal limits for the patient's age. IMPRESSION: Normal CTA of the brain and neck for the patient's age. No evidence ofaneurysm, thrombosis or occlusion. -------- FINAL REPORT -------- Dictated By: Dariel Arreguin Dictated Date: 03/05/2025 12:33 ET Assigned Physician: Dariel Arreguin Reviewed and Electronically Signed By: Dariel Arreguin Signed Date: 03/05/2025 12:42 ET Workstation ID: [id number] Transcribed By: Self Edit Transcribed Date: 03/05/2025 12:33 ET Peter Alfaro DO IMG CT PROCEDURES Final Res ult * CT Head Stroke wo Contrast (03/05/2025 11:43 AM EDT) Anatomical Region Laterality Modality Head and Neck Computed Tomogra phy 03/05/2025 12:0 8 PM EDT Impressions 03/05/2025 12:13 PM EDT No evidence of acute intracranial process on noncontrast head CT. A Critical Document Only message has been documented for the office of PETER ALFARO in the [employer] system on 03/05/2025 12:13 PM, Message ID [id number]. -------- FINAL REPORT -------- Dictated By: Dariel Arreguin Dictated Date: 03/05/2025 12:08 ET Assigned Physician: Dariel Arreguin Reviewed and Electronically Signed By: Dariel Arreguin Signed Date: 03/05/2025 12:13 ET Workstation ID: [id number] Transcribed By: Self Edit Transcribed Date: 03/05/2025 12:08 ET Narrative 03/05/2025 12:13 PM EDT INDICATION: Left arm weakness, facial droop Technique: Axial images were obtained from the skull base to the vertex without contrast enhancement. Scanner: TouchBist[employer] revolution frontier 128 slice VCT Dose reduction technique: ASIR (Adaptive statistical iterative reconstruction) Dose: total exam DLP 844 mGY per cm Comparison: No prior studies available for comparison. FINDINGS: Intracranial contents: No acute intracranial hemorrhage, midline shift or mass-effect. The ventricles, sulci, sylvian fissures and basilar cisterns are symmetric and normal in size and shape for the patients age. No abnormal intra or extra-axial fluid collections. Bony structures/soft tissues: Within normal limits. Sinuses: Paranasal sinuses are clear. Mastoid air cells are well aerated. Procedure Note Dariel Arreguin MD - 03/05/2025 INDICATION: Left arm weakness, facial droop Technique: Axial images were obtained from the skull base to the vertexwithout contrast enhancement. Scanner: Touch[employer]ist[employer] revolution frontier 128 slice VCT Dose reduction technique: ASIR (Adaptive statistical iterativereconstruction) Dose: total exam DLP 844 mGY per cm Comparison: No prior studies available for comparison. FINDINGS: Intracranial contents: No acute intracranial hemorrhage, midline shift ormass- effect. The ventricles, sulci, sylvian fissures and basilar cisternsare symmetric and normal in size and shape for the patients age. Noabnormal intra or extra-axial fluid collections. Bony structures/soft tissues: Within normal limits. Sinuses: Paranasal sinuses are clear. Mastoid air cells are wellaerated. IMPRESSION: No evidence of acute intracranial process on noncontrast head CT. A Critical Document Only message has been documented for the office ofPETER ALFARO in the [employer] system on03/05/2025 12:13 PM, Message ID [id number]. -------- FINAL REPORT -------- Dictated By: Dariel Arreguin Dictated Date: 03/05/2025 12:08 ET Assigned Physician: Dariel Arreguin Reviewed and Electronically Signed By: Dariel Arreguin Signed Date: 03/05/2025 12:13 ET Workstation ID: [id number] Transcribed By: Self Edit Transcribed Date: 03/05/2025 12:08 ET us Peter Alfaro DO IMG CT PROCEDURES Final Res ult from Last 3 Months Insurance MEDICAID ADVANTAGE Advance Directives Documents on File Type Date Recorded Patient Territory Service Representative Expl anation Advance Directives and Living Will 03/06/2025 10:51 AM Toyin Setih Health Care Proxy * Full Code - Default (Latest Code Status on File) Date Activated Date Inactivated Comments 03/05/2025 5:55 PM 03/06/2025 6:58 PM This is orde r is used when code status has not been discussed with the patient, or code status is otherwise unknown/unconfirmed To update the patient's code status, place a code status order. Do not modify or discontinue any currently active code status orders. Healthcare Agents on File Name Relationship Healthcare Agent [facility] Communication Toyin Sethi Daughter Health Care Agent Care Teams Fisheries Enforcement Officer Relationship Specialty Start Date End Date Physician, Pcp Unknown PCP - General 03/05/25
== END 2025-05-22 09:31 | disposition home or self-care (01) ==
LOC: HO.HPS 08:39
PROVIDERS: PCP Internal Medicine; Visit Provider Internal Medicine Pulmonary Disease
DX: G47.33 Obstructive sleep apnea (adult) (pediatric) (principal); R06.09 Other forms of dyspnea; I26.99 Other pulmonary embolism without acute cor pulmonale; J45.909 Unspecified asthma, uncomplicated
CPT/HCPCS: 99214; G2211

== ENCOUNTER → 2025-05-22 08:39 | Outpatient (BNVA) | payer OTHER, SELFPAY | PROVIDERS: PCP Internal Medicine; Visit Provider Internal Medicine Pulmonary Disease | DX: G47.33 Obstructive sleep apnea (adult) (pediatric) (principal); R06.09 Other forms of dyspnea; I26.99 Other pulmonary embolism without acute cor pulmonale; J45.909 Unspecified asthma, uncomplicated | CPT/HCPCS: 99212 ==

== ENCOUNTER 2025-06-02 09:11 | Outpatient (REF) | payer OTHER, SELFPAY ==
--- NOTE | ~2025-06-02 | CT_ITS ---
EXAMINATION: CT ANGIOGRAM CHEST CLINICAL INFORMATION: I26.99 - Other pulmonary embolism without acute cor pulmonale COMPARISON: Chest x-ray December 16, 2024 TECHNIQUE: Multiple axial images were obtained through the chest after the administration of 65 mL of Omnipaque 350 intravenous contrast. Extensive vascular post-processing including two-dimensional and three-dimensional reformatted images were created and reviewed on an independent workstation. This CT examination was performed using dose optimization techniques as appropriate, variously including the following: *Automated exposure control *Adjustment of mA and/or kV according to patient size (this includes techniques or standardized protocols for targeted exams where dose is matched to indication/reason for exam; i.e. extremities or head) *Use of iterative reconstruction technique DLP: 168 mGY*cm FINDINGS: QUALITY OF STUDY/CONTRAST BOLUS: Adequate PULMONARY ARTERIES: No filling defects are seen in the pulmonary arteries. THORACIC AORTA/HEART: There is no aneurysm. There is minimal atherosclerotic calcification in the arch. There is mild flattening of the interventricular septum. However, there is no reflux of contrast into the hepatic veins. LUNGS AND PLEURA: Pulmonary vessels are prominent. Lungs are clear. MEDIASTINUM: There is a low attenuating nodule with peripheral calcification in the left thyroid lobe. CORONARY ARTERY CALCIFICATION: Minimal CHEST WALL/AXILLA: No axillary or internal mammary lymphadenopathy. UPPER ABDOMEN: There is a sliding hiatal hernia involving gastric fundus. BONES: Unremarkable CT/CT angio chest PE protocol IMPRESSION: No evidence of pulmonary artery embolus. Pulmonary vascular congestion and possible mild elevation of right heart pressures resulting in mild flattening of the interventricular septum. Left thyroid nodule with peripheral calcification. Follow-up nonemergent thyroid ultrasound. Fleischner guidelines were followed. . Electronically signed by: Anupam Worthington MD 06/02/2025 10:43 AM EDT
[2025-06-02] MEDS: iohexoL 350 MG/ML 100 ML INFUS..BTL 65 ML IV (10:31)
--- OUTSIDE RECORDS SUMMARY | 2025-06-02 10:33 | XMS_ITS | Clinical Summary ---
Author Organization [facility] Address [address] [place] [address] Care Team Providers Care Cook Starch Name Role Phone Physician, Pcp Unknown Primary [...] - 03/06/2025 4:58 PM EDT Hospital Encounter [facility] [address] [place] [phone] Shira Wheeler DO Flores, Carlos M, MD Kela, Kashyap Devendrabhai, MD Left facial numbness (Primary Dx); Weakness of extremity; Vitamin B12 deficiency Discharge Disposition: Home-Health Care [facility] from Last 3 Months Surgical History [...] Years (1 of 1 - PCV) 2014 Cholesterol Screening (Lipid Panel) 07/20/2024 Colorectal Cancer Screening: Colonoscopy 07/20/2024 HIV Screening 07/20/2024 Hepatitis C Screening 07/20/2024 Social Influencers of Health Screening 07/20/2024 Depression Screening 09/24/2024 RSV Immunization Adult Patients (1 - Risk 60-74 years 1-dose series) 2024 COVID-19 Vaccine (1 - 2023- season) 2025 Influenza Vaccine (#1) 2025 , 08/02/2010, 06/15/2009, [...] 0.16 <0.40 umol/L 03/10/2025 4:09 AM EDT [facility] Comment: If applicable, any drug confirmation testing reported here was developed and the performance characteristics determined by [facility]. This confirmation testing has not been cleared or approved by the FDA. The laboratory is regulated under CLIA as qualified to perform high-complexity testing. This test is used for patient testing purposes. It should not be regarded as investigational or for research. Test performed at [facility], [address], [place] [address] Ingrid Vega MD, PhD - Outpatient Phlebotomist Blood Venous blood specimen / Unknown Venipuncture / Unknown 03/06/2025 8:26 AM EDT 03/06/2025 9:00 AM EDT [facility] LAB BLOOD ORDERABLES Final Result Performing Organization Address City/[facility]/ZIP Co de Phone [place] [address] [place] [address] * Pathology review, blood smear (03/06/2025 6:29 AM EDT) Pathologist Review Blood Smear Leukopenia including absolute neutropenia and lymphopenia; smear not diagnostic of etiology. (See note.) Note: Clinical correlation and follow-up is recommended, including follow-up CBC to evaluate for persistence/pr ogression, as clinically indicated. 03/06/2025 8:52 AM EDT [facility] Blood Venous blood specimen / Unknown Venipuncture / Unknown 03/06/2025 6:29 AM EDT 03/06/2025 7:31 AM EDT Ken Treviño MD LAB BLOOD ORDERABLES Final Re sult Performing Organization Address [facility]/ZIP Co de Phone Number [facility] [address] [place] [address], [place] [phone] * (ABNORMAL) CBC auto differential (03/06/2025 6:29 AM EDT) Only the most recent of2 resultswithin the time period is included. WBC 1.9(LL) 4.8 - 10.8 K/mcL LAB HEMETOLOGY METHOD 03/06/2025 8:35 AM EDT [facility] RBC 4.10 3.80 - 4.80 M/mcL LAB HEMETOLOGY METHOD 03/06/2025 8:35 AM EDT [facility] Hemoglobin 12.2 11.5 - 16.0 g/dL LAB HEMETOLOGY METHOD 03/06/2025 8:35 AM EDT [facility] Hematocrit 39.1 35.0 - 47.0 % LAB HEMETOLOGY METHOD 03/06/2025 8:35 AM [facility] MCV 94.9 79.0 - 98.0 FL LAB HEMETOLOGY METHOD 03/06/2025 8:35 AM [facility] MCH 29.6 27.0 - 32.0 pcg LAB HEMETOLOGY METHOD 03/06/2025 8:35 AM [facility] MCHC 31.2(L) 32.0 - 37.0 g/dL LAB HEMETOLOGY METHOD 03/06/2025 8:35 AM [facility] RDW 13.0 11.0 - 15.0 % LAB HEMETOLOGY METHOD 03/06/2025 8:35 AM [facility] Platelets 162 130 - 400 K/mcL LAB HEMETOLOGY METHOD 03/06/2025 8:35 AM [facility] MPV 11.9(H) 7.0 - 11.0 FL LAB HEMETOLOGY METHOD 03/06/2025 8:35 AM [facility] NRBC 0.0 <1.0 % LAB HEMETOLOGY METHOD 03/06/2025 8:35 AM [facility] NRBC Absolute 0.00 <0.10 K/mcL LAB HEMETOLOGY METHOD 03/06/2025 8:35 AM [facility] Neutrophils Relative 40.7 % LAB HEMETOLOGY METHOD 03/06/2025 8:35 AM [facility] Comment:This is an appended report. These results have been appended to a previously preliminary verified report. Lymphocytes Relative 35.9 % LAB HEMETOLOGY METHOD 03/06/2025 8:35 AM [facility] Comment:This is an appended report. These results have been appended to a previously preliminary verified report. Monocytes Relative 17.7 % LAB HEMETOLOGY METHOD 03/06/2025 8:35 AM [facility] Comment:This is an appended report. These results have been appended to a previously preliminary verified report. Eosinophils Relative 4.2 % LAB HEMETOLOGY METHOD 03/06/2025 8:35 AM [facility] Comment:This is an appended report. These results have been appended to a previously preliminary verified report. Basophils Relative 1.0 % LAB HEMETOLOGY METHOD 03/06/2025 8:35 AM [facility] Comment:This is an appended report. These results have been appended to a previously preliminary verified report. Immature Granulocytes Relative 0.5 % LAB HEMETOLOGY METHOD 03/06/2025 8:35 AM [facility] Comment:This is an appended report. These results have been appended to a previously preliminary verified report. Neutrophils Absolute 0.78(L) 1.50 - 7.00 K/mcL [facility] 03/06/2025 8:35 AM [facility] Comment:This is an appended report. These results have been appended to a previously preliminary verified report. Lymphocytes Absolute 0.69(L) 1.00 - 5.00 K/mcL [facility] 03/06/2025 8:35 AM [facility] Comment:This is an appended report. These results have been appended to a previously preliminary verified report. Monocytes Absolute 0.34 0.20 - 1.00 K/mcL LAB HEMETOLOGY METHOD 03/06/2025 8:35 AM [facility] Comment:This is an appended report. These results have been appended to a previously preliminary verified report. Eosinophils Absolute 0.08 0.00 - 0.50 K/mcL LAB HEMETOLOGY METHOD 03/06/2025 8:35 AM [facility] Comment:This is an appended report. These results have been appended to a previously preliminary verified report. Basophils Absolute 0.02 0.00 - 0.20 K/mcL LAB HEMETOLOGY METHOD 03/06/2025 8:35 AM [facility] Comment:This is an appended report. These results have been appended to a previously preliminary verified report. Immature Granulocytes Absolute 0.01 0.00 - 0.03 K/mcL LAB HEMETOLOGY METHOD 03/06/2025 8:35 AM EDT [facility] Comment:This is an appended report. These results have been appended to a previously preliminary verified report. Blood Venous blood specimen / Unknown Venipuncture / Unknown 03/06/2025 6:29 AM EDT 03/06/2025 7:31 AM EDT us Ken Treviño MD LAB BLOOD ORDERABLES Final Re sult Performing Organization Address City/[facility]/ZIP Co de Phone Number [facility] [address] [place] [address], [place] [phone] * Magnesium (03/06/2025 6:29 AM EDT) Magnesium 2.3 1.9 - 2.6 mg/dL LAB CHEMISTRY METHOD 03/06/2025 8:30 AM EDT [facility] Blood Venous blood specimen / Unknown Venipuncture / Unknown 03/06/2025 6:29 AM EDT 03/06/2025 7:30 AM EDT us Ken Treviño MD LAB BLOOD ORDERABLES Final Re sult Performing Organization Address City/[facility]/ZIP Co de Phone Number [facility] [address] [place] [address], [place] [phone] * Basic metabolic panel (03/06/2025 6:29 AM EDT) Only the most recent of2 resultswithin the time period is included. Sodium 138 133 - 145 mmol/L LAB CHEMISTRY METHOD 03/06/2025 8:30 AM EDT [facility] Potassium 4.1 3.5 - 5.5 mmol/L LAB CHEMISTRY METHOD 03/06/2025 8:30 AM EDT [facility] Chloride 107 96 - 110 mmol/L LAB CHEMISTRY METHOD 03/06/2025 8:30 AM [facility] CO2 27 21 - 32 mmol/L LAB CHEMISTRY METHOD 03/06/2025 8:30 AM [facility] Anion Gap 4 3 - 11 LAB CHEMISTRY METHOD 03/06/2025 8:30 AM [facility] Glucose 85 70 - 100 mg/dL LAB CHEMISTRY METHOD 03/06/2025 8:30 AM [facility] BUN 6 5 - 25 mg/dL LAB CHEMISTRY METHOD 03/06/2025 8:30 AM [facility] Creatinine 0.55 0.50 - 1.10 mg/dL LAB CHEMISTRY METHOD 03/06/2025 8:30 AM [facility] eGFR 105 >=60 mL/min/1. 73m2 LAB CHEMISTRY METHOD 03/06/2025 8:30 AM [facility] Comment:Calculation based on the Chronic Kidney Disease Epidemiology Collaboration (CKD-EPI) equation refit without adjustment for race. BUN/Creatinine Ratio 10.9 LAB CHEMISTRY METHOD 03/06/2025 8:30 AM [facility] Calcium 8.6 8.5 - 10.5 mg/dL LAB CHEMISTRY METHOD 03/06/2025 8:30 AM [facility] Blood Venous blood specimen / Unknown Venipuncture / Unknown 03/06/2025 6:29 AM EDT 03/06/2025 7:30 AM EDT Ken Treviño MD LAB BLOOD ORDERABLES Final Re sult [facility] [address] [place] [address], * ECG-Annotated (03/06/2025) us Provider Onbase ECG ORDERABLES Final Result * (ABNORMAL) Vitamin B12 and folate (03/05/2025 7:37 PM EDT) Pathologist [facility] Vitamin B-12 219(L) 250 - 900 pcg/mL LAB CHEMISTRY METHOD 03/05/2025 9:12 PM EDT [facility] Folate 5.0 2.8 - 17.0 ng/ml LAB CHEMISTRY METHOD 03/05/2025 9:12 PM EDT [facility] Blood Venous blood specimen / Unknown Venipuncture / Unknown 03/05/2025 7:37 PM EDT 03/05/2025 8:20 PM EDT [facility] LAB BLOOD ORDERABLES Final Re sult Performing Organization Address [facility]/ZIP Co de Phone Number [facility] [address] [place] [address], [place] [phone] * Light blue tube (03/05/2025 7:37 PM EDT) [facility] Extra Tube Hold for add-ons. 03/05/2025 10:02 PM EDT [facility] Comment:Auto resulted. Blood Venous blood specimen / Unknown 03/05/2025 7:37 PM EDT 03/05/2025 8:22 PM EDT Shira Wheeler DO LAB BLOOD ORDERABLES Princess l Result Performing Organization Address City/[facility]/ZIP Co de Phone Number [facility] [address] [place] [address], [place] [phone] * ECG 12 lead (03/05/2025 2:13 PM EDT) [facility] Ventricular Rate ECG 77 BPM GEMUSE Atrial Rate 77 BPM GEMUSE P-R Interval 134 ms GEMUSE QRS Duration 84 ms GEMUSE Q-T Interval 368 ms GEMUSE QTc 416 ms GEMUSE P Wave Stamps 33 degrees GEMUSE R Stamps 4 degrees GEMUSE T Stamps 23 degrees GEMUSE ECG Interpretation Normal sinus [...] Signed Date: 03/05/2025 14:52 ET Workstation ID: [id number] Transcribed By: Self Edit Transcribed Date: 03/05/2025 [...] Signed Date: 03/05/2025 14:52 ET Workstation ID: [id number] Transcribed By: Self Edit Transcribed Date: 03/05/2025 [...] Signed Date: 03/05/2025 13:50 ET Workstation ID: [id number] Transcribed By: Self Edit Transcribed Date: 03/05/2025 [...] Signed Date: 03/05/2025 13:50 ET Workstation ID: [id number] Transcribed By: Self Edit Transcribed Date: 03/05/2025 13:45 ET Shira Solis Smith Liam DO IMG MRI PROCEDURES Final Result * Activated partial thromboplastin time (03/05/2025 12:39 PM EDT) aPTT 26.9 24.1 - 39.3 sec LAB COAGULATION METHOD 03/05/2025 1:21 PM EDT [facility] Blood Venous blood specimen / Unknown Venipuncture / Unknown 03/05/2025 12:39 PM EDT 03/05/2025 1:06 PM EDT us Peter Alfaro DO LAB BLOOD ORDERABLES Final Result Performing Organization Address [facility]/ZIP Co de Phone Number [facility] [address] [place] [address], [place] [phone] * Prothrombin time with INR (03/05/2025 12:39 PM EDT) Protime 11.2 10.6 - 13.9 sec LAB COAGULATION METHOD 03/05/2025 1:21 PM EDT [facility] INR 0.9 LAB COAGULATION METHOD 03/05/2025 1:21 PM EDT [facility] Blood Venous blood specimen / Unknown Venipuncture / Unknown 03/05/2025 12:39 PM EDT 03/05/2025 1:06 PM EDT us Peter Alfaro DO LAB BLOOD ORDERABLES Final Result Performing Organization Address City/[facility]/ZIP Co de Phone Number [facility] [address] [place] [address], [place] [phone] * CT Angio Head/Neck Stroke wo and/or [...] Signed Date: 03/05/2025 12:42 ET Workstation ID: [id number] Transcribed By: Self Edit Transcribed Date: 03/05/2025 [...] workstation. CT source data was analyzed using [employer] artificial intelligence software to assist stroke clinical decision making with regard to diagnosis of large vessel occlusion. Scanner: CopperGate Communicationser 128slice VCT Dose reduction technique: ASIR (Adaptive [...] workstation. CT source data was analyzed using Videof[employer] artificial intelligencesoftware to assist stroke clinical decision making with regard todiagnosis of large vessel occlusion. Scanner: [employer]er 128slice VCT Dose reduction technique: ASIR (Adaptive [...] Signed Date: 03/05/2025 12:42 ET Workstation ID: [id number] Transcribed By: Self Edit Transcribed Date: 03/05/2025 [...] the office of PETER ALFARO in the [employer] system on 03/05/2025 12:13 PM, Message ID [id number]. -------- FINAL REPORT -------- Dictated By: Dariel Arreguin Dictated Date: 03/05/2025 12:08 ET Assigned Physician: Dariel Arreguin Reviewed and Electronically Signed By: Dariel Arreguin Signed Date: 03/05/2025 12:13 ET Workstation ID: [id number] Transcribed By: Self Edit Transcribed Date: 03/05/2025 12:08 ET Narrative 03/05/2025 12:13 PM EDT INDICATION: Left arm weakness, facial droop Technique: Axial images were obtained from the skull base to the vertex without contrast enhancement. Scanner: [employer] revolution frontier 128 slice VCT Dose reduction [...] base to the vertexwithout contrast enhancement. Scanner: [employer] revolution frontier 128 slice VCT Dose reduction [...] for the office ofPETER ALFARO in the [employer] system on03/05/2025 12:13 PM, Message ID [id number]. -------- FINAL REPORT -------- Dictated By: Dariel Arreguin Dictated Date: 03/05/2025 12:08 ET Assigned Physician: Dariel Arreguin Reviewed and Electronically Signed By: Dariel Arreguin Signed Date: 03/05/2025 12:13 ET Workstation ID: [id number] Transcribed By: Self Edit Transcribed Date: 03/05/2025 12:08 ET us Peter Alfaro DO IMG CT PROCEDURES Final Res ult from Last 3 Months Insurance MEDICAID ADVANTAGE Advance Directives Documents on File Type Date Recorded Patient Investor Relations Director Expl anation Advance Directives and Living Will 03/06/2025 10:51 AM Toyin Sethi Health Care Proxy * Full Code - [...] Agents on File Name Relationship Healthcare Agent [facility] Communication Toyin Sethi Daughter Health Care Agent Care Teams Cook Starch Relationship Specialty Start Date End Date Physician, Pcp Unknown PCP - General 03/05/25
[2025-06-03 06:02] LABS: Creatinine POC 0.7 mg/dL (0.5-1.4); GFR POC > 60
== END 2025-06-02 09:12 | disposition home or self-care (01) ==
LOC: HO.CT 09:11
PROVIDERS: PCP Internal Medicine; Visit Provider Internal Medicine Pulmonary Disease
DX: I26.99 Other pulmonary embolism without acute cor pulmonale (principal)
CPT/HCPCS: 71275; 82565; Q9967

== ENCOUNTER → 2025-06-02 09:12 | Outpatient (BNV) | payer OTHER, SELFPAY | PROVIDERS: PCP Internal Medicine; Visit Provider Radiology Diagnostic Radiology | DX: I26.99 Other pulmonary embolism without acute cor pulmonale (principal); E04.1 Nontoxic single thyroid nodule; J81.0 Acute pulmonary edema | CPT/HCPCS: 71275 ==

== ENCOUNTER 2025-08-13 09:03 | Outpatient (AMB) | payer OTHER, SELFPAY ==
[2025-08-13 09:10] VITALS: BP 132/77; PULSE 81; O2SAT 100; BMI 42.7
--- NOTE | 2025-08-13 09:10 | A.OFFVIS_ITS ---
Vital Signs 08/13/25 09:10 Height 5 ft 4 in Weight 249 lb BMI 42.7 BP 132/77 Blood Pressure Location Lt brachial Position Sitting Pulse 81 Pulse Source Pulse Oximeter Pulse Oximetry (%) 100 Oxygen Delivery Method Room Air Intake Visit Reasons: Sleep apnea City Assessor Required: Yes City Assessor Name: Uma Gomez Information Interpreted: non-clinical & clinical Allergies ciprofloxacin (From Cipro) Allergy (Unknown, Verified 08/13/25 09:17) SWELLING levofloxacin (From Levaquin) Allergy (Unknown, Verified 08/13/25 09:17) SWELLING metronidazole (From Flagyl) Allergy (Unknown, Verified 08/13/25 09:17) HIVES From Flagyl Allergy (Unknown, Uncoded 06/10/20 17:08) HIVES HPI HPI Sleep apnea: Details: 59-year-old lady, nonsmoker, followed for moderate LINA and reactive airway disease. Patient was tried on and not able to use CPAP. Her reactive airway disease component as well controlled on as needed albuterol MDI. She had recent admission to [facility] for pulmonary segmental emboli in the right lower lobe and she is currently on apixaban. After the last office visit patient had follow-up CT angio chest that showed no pulmonary emboli, but significant pulmonary edema. She has also ran out of her diuretic and started to experience worsening shortness of breath and swelling. [facility], [facility] Social History (Updated 12/16/24 @ 10:42 by Uma Min Coral) Patient Tobacco Use Status: Never used Tobacco Review of Systems Const Denies daytime sleepiness, Denies excessive sweating, Denies fatigue, Denies fever(s), Denies lethargy, Denies malaise, Denies night sweats, Denies snoring and Denies weight loss Eyes Denies blurry vision and Denies itchy eyes ENT Denies nasal congestion, Denies post nasal drip, Denies sinus pain, Denies sinus pressure and Denies other ( Thrush) Card Denies chest pain, Reports pedal edema, Denies dyspnea, Reports dyspnea on exertion, Reports orthopnea and Reports paroxysmal nocturnal dyspnea Resp Denies cough, Denies hemoptysis, Denies excessive phlegm production, Denies dyspnea, Reports dyspnea on exertion, Denies snoring and Denies wheezing GI Denies abdominal pain and Denies heartburn Musc Denies myalgias, Denies arthralgias and Denies joint swelling Skin/Breast Denies rash Neuro Denies memory loss and Denies seizure-like activity Psych Denies abnormal sleep pattern, Denies anxiety and Denies memory loss Endo Denies excessive sweating, Denies fatigue and Denies heat intolerance Oziel/Lymph Denies easy bruising Aller/Immun Denies itchy eyes, Denies seasonal rhinorrhea and Denies wheezing Physical Exam Vital Signs: Last Vital Signs Pulse 81 08/13/25 09:10 BP 132/77 08/13/25 09:10 Pulse Ox 100 08/13/25 09:10 Oxygen Delivery Method Room Air 08/13/25 09:10 BMI result Body Mass Index 42.7 Const General: no acute distress and alert Nutritional Appearance: obese Orientation/consciousness: Other orientation findings ( oriented) HEENT Head: Yes atraumatic Eyes General: appearance normal, both eyes and all related structures Sclerae: sclerae normal EOM: EOMs intact bilaterally Neck Neck: Yes supple Lymphatic: no lymphadenopathy noted Resp Effort & Inspection: normal respiratory effort and no use of accessory muscles Auscultation: clear to auscultation bilaterally Cardio Rate: regular rate Rhythm: regular rhythm Heart sounds: no gallops, no murmurs and no rubs Skin General skin exam: other ( warm) Extrem General: No clubbing, No cyanosis and Yes edema (2+ bilateral) Assessment & Plan Assessment & Plan (1) Reactive airway disease: Code(s): J45.909 - Unspecified asthma, uncomplicated Category: Medical Plan: Controlled on current regimen of as needed albuterol MDI. Continue current regimen. (2) Dyspnea on exertion: Code(s): R06.09 - Other forms of dyspnea Category: Medical Plan: With significantly worsening symptoms after running out of diuretic. Will switch furosemide to Bumex 2 mg daily. Medications: New bumetanide 2 mg PO DAILY 30 tabs 6RF Discontinued furosemide Discontinued Reason: Doctor's Order 40 mg PO QAM 30 tabs 6RF Coding Level of Care Code Est Pt Level 4 (08167) Diagnoses Reactive airway disease J45.909 Dyspnea on exertion R06.09
--- OUTSIDE RECORDS SUMMARY | 2025-08-13 11:00 | XMS_ITS | Continuity of Care Document ---
Author Organization [place] - [facility], [facility] [place] Address [address] [place] [address] Care Team Providers Care Tune Up Mechanic Name Role Phone TRACIE COONEY Referring Provider Assessment Encounter Date Assessment Date Assessment LastModified by Organization Details LastModified Time 07/15/2025 07/15/2025 The patient presents today with both history and physical exam suggestive for chronic sinusitis. This has been minimally worked up so far. Flexible laryngoscopy revealed evidence of laryngopharyngeal reflux as well as left septal deviation and turbinate hypertrophy.. We will need a CT scan to better delineate the paranasal sinus disease, she previously had anterior ethmoid disease and maxillary sinus disease likely odontogenic. - CT Sinus Ordered - Start nasal Washes and Nasal Steroids - Start prednisone taper - Return visit in 6 weeks -I do think she would be a great candidate for septoplasty, turbinate reduction, bilateral maxillary antrostomy and bilateral anterior ethmoidectomy if she is not improving with medical therapy [email or web address] Not available 07/15/2025 10:48:29 Plan of Treatment Reminders Order Date Submit Date Provider Last Modified By Organization Details Last Modified Time Details Appointments CT Scan 2024 10:30A M [facility] Not available Not available Not available Establish ed 15 2024 10:45A M Abdulaziz Watson, DO Not available Not available Not available Lab None recorded. Referral None recorded. Procedures None recorded. Surgeries None recorded. Imaging None recorded. Medication Orders fluticaso ne propionat e 50 mcg/actua tion nasal spray,kamari pension 2024 025 [facility] #[id number], [address] [place], [address], 07/15/2025 10:48:50 prednison e 10 mg tablet 2024 025 [facility] #[id number], [address] [facility], [place], [address], 07/15/2025 10:48:51 Patient TargetsNo targets recorded. Patient Instructions Encounter Date Encounter Id Patient Instructions Last Modified By Organization Details Last Modified Time 07/15/2025 [id number] laryngopharyngea l reflux education [email or web address] Not available 07/15/2025 10:48:30 - Use fluticason e nasal spray and perform salt water rinses to the nose daily for six weeks. - Avoid spicy or acidic foods, including raina, limes, tomatoes, and caffeine. - Consider decaffeinated coffee or half-caf coffee as alternatives. - Follow up in six weeks for repeat CT scan. - Consult a fitness supervisor if reflux symptoms persist despite medication adjustments. [email or web address] Not available 07/15/2025 10:42:32 Please note: Par ts of this encounter note have been generated by AI based on audio conversation. Patient consent was required prior to utilizing this technology. Content review was required prior to finalizing the note. [email or web address] Not available 07/15/2025 10:42:32 Reason for Referral None Reported. Results Created Date Observation Date Name Description Value Unit Range Abnormal Flag Note LastModifiedBy Organization Detail LastModifiedTime 07/28/20 25 03/18/2025 CT, head + brain , w/o contr ast No observ ation record ed. [email or web address] Not Available 12/2024 09:09:35 Result Notes None recorded. Problems Name Problem SNOMED Code Status Onset Date Resolution Date Notes Provider Name and Address Organization Details Recorded Time Laryngopharyng eal reflux 593212623 Active 2024 Abdulaziz Watson DO [address] [place] [address], [place], [address], [facility] - [facility] 10:46:51 Edema of larynx 55173150 Active 2024 Abdulaziz Watson DO [address] [place] [address], [place], [phone], [facility] - [facility] [place] 5 10:46:51 Chronic sinusitis 50447404 Active 2024 Abdulaziz Watson, DO [address] [address], [place], [address], [facility] - [facility] [place] 5 10:47:01 Chronic rhinitis 44926125 Active 2024 Abdulaziz Watson, [address] [address], [place], [address], [facility] - [facility] [place] 5 10:47:01 Problem Notes None recorded. Procedures Surgical History Date Name Laterality Status Provider Name and Address Organization Details Recorded Time 07/15/2025 FOL_Reflux _DHL completed Abdulaziz Watson, DO [address] [address], [place], [address], [facility] - [facility] [place] 07/15/2025 10:45:33 Imaging Results None recorded. Procedure Notes None recorded. Medical Equipment None Reported. Medications Name Sig Start Date Stop Date Status Note LastModified by Organization Details LastModified Time cyclobenzap rine 10 mg tablet TAKE 1 TABLET BY MOUTH AT BEDTIME NEEDED FOR BACK PAIN active Not Available Not Available No t Available furosemide 40 mg tablet TAKE 1 TABLET BY MOUTH EVERY MORNING active Not Available Not Available No t Available prednisone 10 mg tablet Take 4 tabs once a day for 3 days, then take 3 tabs for 3 days, 2 tabs for 3 days, 1 tab for 3 days 2024 active Not Available Not Available Not Avai lable clindamycin HCl 300 mg capsule TAKE 1 CAPSULE BY MOUTH EVERY 6 HOURS FOR 7 DAYS 07/08 completed Not Available Not Available Not Available citalopram 40 mg tablet TAKE 1 TABLET BY MOUTH EVERY DAY active Not Available Not Available No t Available ibuprofen 800 mg tablet TAKE 1 TABLET BY MOUTH EVERY 8 HOURS FOR 7 DAYS FOR PAIN active Not Available Not Available No t Available citalopram 10 mg tablet TAKE 1 TABLET BY MOUTH EVERY DAY active Not Available Not Available No t Available ondansetron HCl 4 mg tablet TAKE 1 TABLET BY MOUTH EVERY 8 HOURS NEEDED FOR NAUSEA AND VOMITING active Not Available Not Available No t Available clonazepam 0.5 mg tablet TAKE 1 TABLET BY MOUTH TWICE A DAY active Not Available Not Available No t Available hydroxyzine pamoate 50 mg capsule TAKE 1 CAPSULE BY MOUTH EVERY NIGHT AT BEDTIME. active Not Available Not Available No t Available sulfamethox azole 800 mg-trimetho prim 160 mg tablet TAKE 1 TABLET BY MOUTH EVERY 12 HOURS FOR 7 DAYS 07/08 completed Not Available Not Available Not Available omeprazole 40 mg capsule,del ayed release TAKE 1 CAPSULE BY MOUTH EVERY DAY active Not Available Not Available No t Available tramadol 50 mg tablet TAKE 1 TABLET BY MOUTH ONCE DAILY NEEDED FOR PAIKN. CAN TAKE WITH TYLENOL active Not Available Not Available No t Available acetaminoph en ER 650 mg tablet,exte nded release TAKE 2 TABLETS BY MOUTH EVERY 8 HOURS NEEDED FOR BACK PAIN active Not Available Not Available No t Available citalopram 20 mg tablet TAKE 1 TABLET BY MOUTH EVERY DAY active Not Available Not Available No t Available trazodone 100 mg tablet TAKE 2 TABLETS BY MOUTH EVERY DAY AT NIGHT active Not Available Not Available No t Available calcitonin (salmon) 200 unit/actuat ion nasal spray INHALE 1 SPRAY INTO 1 NOSTRIL DAILY..AL TERNATE NOSTRILS DAILY active Not Available Not Available No t Available cyanocobala min (vit B-12) 1,000 mcg/mL injection solution active Not Available Not Available Not Available trazodone 150 mg tablet TAKE 1 TABLET BY MOUTH EVERY DAY AT NIGHT active Not Available Not Available No t Available buspirone 10 mg tablet TAKE 2 TABLETS BY MOUTH THREE TIMES A DAY NEEDED active Not Available Not Available No t Available lidocaine 5 % topical patch APPLY 1 PATCH TOPICALLY EVERY DAY AFTER 12 HOURS active Not Available Not Available No t Available ibuprofen 400 mg tablet TAKE 1 TABLET BY MOUTH EVERY 6 HOURS NEEDED FOR PAIN FOR 10 DAYS active Not Available Not Available No t Available buspirone 7.5 mg tablet TAKE 1 TABLET BY MOUTH THREE TIMES A DAY NEEDED active Not Available Not Available No t Available gabapentin 100 mg capsule TAKE 1 CAPSULE BY MOUTH THREE TIMES A DAY active Not Available Not Available No t Available zolpidem 10 mg tablet TAKE 1 TABLET BY MOUTH EVERYDAY AT BEDTIME active Not Available Not Available No t Available fluticasone propionate 50 mcg/actuati on nasal spray,suspe nsion Rosepine 2 sprays every day by intranasa l route for 30 days. 2024 active Not Available Not Available Not Avai lable buspirone 15 mg tablet TAKE 1 TABLET BY MOUTH THREE TIMES A DAY NEEDED active Not Available Not Available No t Available Heartburn Relief (famotidine ) 10 mg tablet TAKE 1 TABLET BY MOUTH TWICE A DAY FOR 30 DAYS active Not Available Not Available No t Available aripiprazol e 5 mg tablet TAKE 1 TABLET BY MOUTH EVERY DAY active Not Available Not Available No t Available BD Integra Syringe 3 mL 25 gauge x 1 USE DIRECTED FOR VITAMIN B 12 INJECTION active Not Available Not Available No t Available cholecalcif deysi (vitamin D3) 1,250 mcg (50,000 unit) capsule 1 CAPSULE BY MOUTH EVERY WEEK,INST R:PIYUSH LYLE CAPSULA LYLE VEZ A LA SEMANA POR UN TOTAL DE 8 SEMANAS active Not Available Not Available No t Available diclofenac 1 % topical gel APPLY TOPICALLY 4 TIMES A DAY FOR 30 DAYS, USE DOSING CARD TO MEASURE A DOSE active Not Available Not Available No t Available GaviLyte-G 236 gram-22.74 gram-6.74 gram-5.86 gram oral solution PER INSTRUCTI ONS FROM GI. active Not Available Not Available No t Available Eliquis 5 mg tablet TAKE 1 TABLET BY MOUTH TWICE A DAY active Not Available Not Available No t Available cefixime 400 mg capsule TAKE 1 CAPSULE BY MOUTH EVERY DAY FOR 7 DAYS 07/08 completed Not Available Not Available Not Available Daily-Marily (with folic acid) 400 mcg tablet TAKE 1 TABLET BY MOUTH EVERY DAY active Not Available Not Available No t Available Auvelity 45 mg-105 mg tablet, extended release TAKE 1 TABLET BY MOUTH TWICE A DAY active Not Available Not Available No t Available Vitals Date Recorded Body height Body mass index (BMI) Body weight Provider Name and Address Organization Details Last Updated DateTime 07/15/2025 162.56 cm 39.5 kg/m2 661810.25 g [facility] 07/15/2025 10:25:53 Social History None recorded. Functional Status None recorded. Mental Status None recorded. Family History Nothing Reported. Medical History No medical history recorded. Gynecological HistoryNo gynecological history recorded. Obstetrics History GPAL:G 0 P 0 0 0 0 Past Encounters Encounter ID Performer Location Encounter Start Date Encounter Closed Date Diagnosis/Indication Diagnosis SNOMED-CT Code Diagnosis ICD10 Code Diagnosis IMO Codes Diagnosis Note [id number] Abdulaziz Watson, DO [facility] [address] [place] [address] 07/15/2025 10:18:23 07/15/2025 10:45:05 Laryngopharyngeal reflux 955159477 K21.9 3207933 For the silent acid reflux, I recommend switching the patient from Prilosec to another medication for better control of symptoms. I advised avoiding spicy or acidic foods, such as raina, limes, tomatoes, and caffeine, for a few weeks. Decaffeina jann coffee or half-caf coffee may be consumed instead. If symptoms are not well controlled , I suggested follow-up with a gastroente rologist for further management . Edema of larynx 83032812 J38.4 07128 Chronic rhinitis 5308372 6 J31.0 Chronic sinusitis 503889 00 J32.8 Health Concerns Section Related Observation LastModified by Organization Detai ls LastModified Time None Recorded Concern Status LastModified by Organization Details LastModified Time None Recorded Payers Encounter Date Sequence Insurance Name Policy Number Policy Laureano Covered Member ID Laureano Member ID Guarantor Name 07/15/[address] [place] [address] [id number] Gisella Trujilloa [id number] Gisella Wise Notes Date Note Type Note Provider Name and Address Organization Details Recorded Time 07/15/2025 text/html ROS as noted in the HPI Gisella Wise is a 59-year-old female who presents for evaluation of sinus and throat concerns. She reports purulent, malodorous nasal discharge and difficulty breathing through the nose. She also endorses facial pain and pressure. She has a history of obesity, iron deficiency anemia, B12 deficiency, fibromyalgia, depression, and recurrent sinusitis treated with multiple courses of antibiotics. She has not undergone sinus surgery previously but has had tonsillectomy in the past. She denies the use of nasal sprays or saline rinses. Her prior CT scan demonstrated mucosal thickening of the maxillary sinuses with air-fluid levels. Additionally, she reports a sensation of food getting stuck near the trachea when swallowing. She does have a history of acid reflux and is currently on a PPI daily. She has had multiple prior esophageal dilations as well. Abdulaziz Watson DO [address] [place] [address], [phone], [facility] - [facility] [place] 07/15/2025 10:48:51 OBGyn Episode No OBEpisode recorded.
--- OUTSIDE RECORDS SUMMARY | 2025-08-13 11:00 | XMS_ITS | Data Portability ---
Author Organization [place] - [facility], Allergy Address [address] [facility] [address] [place] [address] Care Team Providers Care Plastic Duplicator Name Role Phone TRACIE COONEY Referring Provider [...] CT Scan 2024 10:30A [facility] Not available Not available Not available Establish ed 15 2024 10:45A M Abdulaziz Watson, DO Not available Not available Not available Lab None recorded. Referral None recorded. Procedures None recorded. Surgeries None recorded. Imaging None recorded. Medication Orders fluticaso ne propionat e 50 mcg/actua tion nasal spray,kamari pension 2024 025 [facility] #[id number], [address] [place], [address], 07/15/2025 10:48:50 prednison e 10 mg tablet 2024 025 [facility] #[id number], [address] [place], [address], 07/15/2025 10:48:51 Patient TargetsNo targets recorded. Patient Instructions Encounter Date Encounter Id Patient Instructions Last Modified By Organization Details Last Modified Time 07/15/2025 [id number] laryngopharyngea l reflux education dlofgrenmd Not available 07/15/2025 10:48:30 - Use fluticason e nasal spray and perform salt water rinses to the nose daily for six weeks. - Avoid spicy or acidic foods, including raina, limes, tomatoes, and caffeine. - Consider decaffeinated coffee or half-caf coffee as alternatives. - Follow up in six weeks for repeat CT scan. - Consult a corporate auditor if reflux symptoms persist despite medication adjustments. [...] contr ast No observ ation record ed. [email or web address] Not Available 12/2024 09:09:35 Result Notes None recorded. Problems Name Problem SNOMED Code Status Onset Date Resolution Date Notes Provider Name and Address Organization Details Recorded Time Laryngopharyng eal reflux 475853219 Active 2024 Abdulaziz Watson DO [address] [place] [address], [place], [address], [facility] - [facility] 10:46:51 Edema of larynx 22779814 Active 2024 Abdulaziz Watson DO [address] [place] [address], [place], [phone], [place] - [facility] 10:46:51 Chronic sinusitis 32154599 Active 2024 Abdulaziz Watson, DO [address] [facility],[place] [address], [place], [address], [facility] - [facility] 10:47:01 Chronic rhinitis 14888602 Active 2024 Abdulaziz Watson, DO [address] [facility],[place] [address], [place], [address], [facility] - [facility] 10:47:01 Problem Notes None recorded. Procedures Surgical History Date Name Laterality Status Provider Name and Address Organization Details Recorded Time 07/15/2025 FOL_Reflux _DHL completed Abdulaziz Watson, DO [address] [facility] [address], [place], [address], [facility] 07/15/2025 10:45:33 Imaging Results None recorded. Procedure [...] propionate 50 mcg/actuati on nasal spray,suspe nsion [facility] 2 sprays every day by intranasa l [...] Updated DateTime 07/15/2025 162.56 cm 39.5 kg/m2 094391.25 g [facility] 07/15/2025 10:25:53 Social History None recorded. Functional Status None recorded. Mental Status None recorded. Family History Nothing Reported. Medical History No medical history recorded. Gynecological HistoryNo gynecological history recorded. Obstetrics History GPAL:G 0 P 0 0 0 0 Past Encounters Encounter ID Performer Location Encounter Start Date Encounter Closed Date Diagnosis/Indication Diagnosis SNOMED-CT Code Diagnosis ICD10 Code Diagnosis IMO Codes Diagnosis Note [id number] Abdulaziz Watson DO [facility] [address] [place] [address] 07/15/2025 10:18:23 07/15/2025 10:45:05 Laryngopharyngeal reflux 291839238 K21.9 0409371 For the silent acid reflux, I recommend [...] for further management . Edema of larynx 74312815 J38.4 01578 Chronic rhinitis 2192771 6 J31.0 Chronic sinusitis 801509 00 J32.8 Health Concerns Section Related Observation LastModified by Organization Detai ls LastModified Time None Recorded Concern Status LastModified by Organization Details LastModified Time None Recorded Advance Directives Directive None Recorded Payers Insurance Date Sequence Insurance Name Policy Number Policy Laureano Covered Member ID Laureano Member ID Guarantor Name 07/15/[address] [place] [address] [id number] Gisella Trujilloa [id number] Gisella Wise Notes Date Note Type Note [...] multiple prior esophageal dilations as well. Abdulaziz Watson, [address] [facility],[place] [address], [place], [address], [facility] - [facility] 07/15/2025 10:48:51 OBGyn Episode No OBEpisode recorded.
== END 2025-08-13 09:40 | disposition home or self-care (01) ==
PROVIDERS: PCP Internal Medicine; Visit Provider Internal Medicine Pulmonary Disease
DX: J45.909 Unspecified asthma, uncomplicated (principal); R06.09 Other forms of dyspnea
CPT/HCPCS: 99214

== ENCOUNTER → 2025-08-13 09:03 | Outpatient (BNVA) | payer OTHER, SELFPAY | PROVIDERS: PCP Internal Medicine; Visit Provider Internal Medicine Pulmonary Disease | DX: J45.909 Unspecified asthma, uncomplicated (principal); R06.09 Other forms of dyspnea; G47.33 Obstructive sleep apnea (adult) (pediatric); Z86.711 Personal history of pulmonary embolism; Z79.01 Long term (current) use of anticoagulants | CPT/HCPCS: 99212 ==